=== PATIENT | male | born 1935 | race African-American/Black ===

== ENCOUNTER 2020-03-10 12:47 | Inpatient (IN) | payer MEDICARE ==
[2020-03-10 13:34] LABS: ABSOLUTE BASOPHILS # (AUTO) 0.1 10^3/uL (0.0-0.2); ABSOLUTE EOSINOPHILS # (AUTO) 0.4 10^3/uL (0.0-0.6); ABSOLUTE MONOCYTES (AUTO) 1.3 10^3/uL (0.1-1.4); BASOPHILS % (AUTO) 0.9 % (0-2); EOSINOPHILS % (AUTO) 3.4 % (0-6); LYMPHOCYTES % (AUTO) 15.7 % (13-45); MEAN CORPUSCULAR HEMOGLOBIN 31.1 pg (27.0-33.4); MEAN CORPUSCULAR HGB CONC 33.2 g/dL (32.0-36.0); MEAN CORPUSCULAR VOLUME 94 fl (80-97); MONOCYTES % (AUTO) 10.2 % (3-13); PLATELET COUNT 665 10^3/uL (150-450); RED BLOOD COUNT 4.16 10^6/uL (4.35-5.55); RED CELL DISTRIBUTION WIDTH 14.3 % (11.5-14.0); SEGMENTED NEUTROPHILS % (AUTO) 69.8 % (42-78); TOTAL CELLS COUNTED % (AUTO) 100 %; WHITE BLOOD COUNT 12.8 10^3/uL (4.0-10.5)
[2020-03-10 13:39] LABS: INTERNATIONAL RATION (INR) 0.99; PROTHROMBIN TIME 13.1 SEC (11.4-15.4)
[2020-03-10 13:49] LABS: ALBUMIN 3.6 g/dL (3.5-5.0); ALKALINE PHOSPHATASE 98 U/L (38-126); ANION GAP 5 (5-19); ASPARTATE AMINO TRANSFERASE 23 U/L (17-59); BILIRUBIN,TOTAL 0.6 mg/dL (0.2-1.3); BLOOD UREA NITROGEN 12 mg/dL (7-20); CALCIUM 9.4 mg/dL (8.4-10.2); CARBON DIOXIDE 30 mmol/L (22-30); CHLORIDE 99 mmol/L (98-107); GLUCOSE 324 mg/dL (75-110); POTASSIUM 4.9 mmol/L (3.6-5.0)
--- NOTE | 2020-03-10 13:50 | RADIOLOGY REPORT (SQ) ---
EXAM DESCRIPTION: CHEST SINGLE VIEW IMAGES COMPLETED DATE/TIME: 03/10/2020 1:35 pm REASON FOR STUDY: bed 19 sepsis protocol COMPARISON: Chest x-ray 09/19/2012. EXAM PARAMETERS: NUMBER OF VIEWS: One view. TECHNIQUE: Single frontal radiographic view of the chest acquired. RADIATION DOSE: NA LIMITATIONS: None. FINDINGS: LUNGS AND PLEURA: There are bibasilar airspace opacities. No pleural effusion or pneumoth orax. Hyperlucent lungs are suggestive of emphysema. MEDIASTINUM AND HILAR STRUCTURES: No masses. Contour normal. HEART AND VASCULAR STRUCTURES: Heart normal in size. Normal vasculature. BONES: No acute findings. HARDWARE: None in the chest. IMPRESSION: Bibasilar airspace opacities, may be secondary to atelectasis or pneumonia. Emphysema. TECHNICAL DOCUMENTATION: JOB ID: [id number] 2010 [employer]- All Rights Reserved Reading location - IP/workstation name: [email or web address]
[2020-03-10 14:01] LABS: TROPONIN I 0.029 ng/mL
--- NOTE | 2020-03-10 14:58 | RADIOLOGY REPORT (SQ) ---
EXAM DESCRIPTION: FOOT LEFT COMPLETE IMAGES COMPLETED DATE/TIME: 03/10/2020 2:44 pm REASON FOR STUDY: swelling COMPARISON: None. NUMBER OF VIEWS: Three views. TECHNIQUE: AP, lateral and oblique radiographic images acquired of the left foot. LIMITATIONS: None. FINDINGS: MINERALIZATION: Osteopenia. BONES: Linear lucencies are noted at the 1st, 2nd and 5th distal phalanges. Degenerative changes are noted at the 1st metatarsal-phalangeal joint and at the 5th metatarsophalangeal joint. SOFT TISSUES: There are thickened toenails with irregular edges. There is diffuse soft tissue swelli ng. Skin irregularity with small amount of gas is noted at the tips of the 1st and 2nd toes. IMPRESSION: 1. Linear lucencies at the 1st, 2nd and 5th distal phalanges, may represent nondisplaced fractures versus artifact. Please correlate with point tenderness. 2. Diffuse soft tissue swelling at the left foot. Skin irregularity with small amount of gas at the tips of the 1st and 2nd toes, suggestive of soft tissue laceration/wound. Please correlate with clin ical exam. 3. Thickened toenails with irregular edges. TECHNICAL DOCUMENTATION: JOB ID: [id number] 2010 [employer]- All Rights Reserved Reading location - IP/workstation name: [email or web address]
[2020-03-10 16:27] LABS: VENOUS BLOOD BASE EXCESS 2.1 mmol/L; VENOUS BLOOD PCO2 48.6 mmHg (35-63); VENOUS BLOOD PH 7.38 (7.30-7.42)
[2020-03-10] MEDS ORDERED: CEFEPIME 2 GM/D5W RTU 2 GM/50 ML RTUPB IV ONE ×2 (16:45→21:38)
[2020-03-10] MEDS ORDERED: VANCOMYCIN HCL INJ 1000 MG VIAL IV ONE (16:46)
--- NOTE | 2020-03-10 16:54 | ER Document Report ---
ED General - General Chief Complaint: Swelling Stated Complaint: FOOT SWELLING Time Seen by Provider: 03/10/20 16:11 - HPI Notes: Patient is an 84-year-old male who presents to the emergency department for evaluation. I asked him why he is here, he states he does not know. Evidently, EMS was called because of worsening swelling and pain in his left foot. He cannot give me any timeline on it. He states it does hurt some, but really cannot comment any further. He has no idea how long it is had foul-smelling drainage. He has not seen a physician in 20 years. He states he has no known medical problems. He was coughing in the room. I asked him how long he had been coughing, he states he does not have a cough. - Related Data Allergies/Adverse Reactions: No Known Allergies Allergy (Unverified 09/19/12 16:55) Home Medications: None Past Medical History - General Information source: Patient - Social History Smoking Status: Current Every Day Smoker Chew tobacco use (# tins/day): No Frequency of alcohol use: Occasional Drug Abuse: None Family History: Other Patient has homicidal ideation: No Musculoskeletal Medical History: Reports Hx Arthritis Surgical Hx: Other - Patient states "I might have had surgery, I do not remember." - Immunizations Hx Diphtheria, Pertussis, Tetanus Vaccination: No Review of Systems - Review of Systems Respiratory: See HPI Musculoskeletal: See HPI Skin: See HPI -: Yes All other systems reviewed and negative - I do not believe the patient to be a reliable historian Physical Exam - Vital signs Vitals: Resp 20 03/10/20 13:05 - Notes Notes: This is an 84-year-old male who appears his stated age. He is somewhat hard of hearing. He is lying comfortably in bed, arouses easily to verbal stimuli. Head is normocephalic and atraumatic, pupils are equal round, reactive to light. Oral mucosa is moist. Uvula is midline. Heart is regular rate and rhythm, lungs revealed diminished expiratory breath sounds. Abdomen is soft, nontender, normoactive bowel sounds. Extremities are mostly cachectic. The patient has 2+ pitting edema to the left foot. He has significant ulcerations and eschar formation on the first and second toes. He has a marked amount of foul-smelling drainage from the area. The foot is warm. He has 3+ pitting edema to the foot. He has excessive scaling of bilateral feet. Course - Re-evaluation Re-evalutation: 03/10/20 16:53 Patient presents to the emergency department for evaluation. He had laboratory investigations as ordered. The patient has a leukocytosis, hyperglycemia, consistent with undiagnosed diabetes. He has significant ulceration and infection in his left toes. He is given IV cefepime and vancomycin. He is giv en IV fluids, 2 L of LR ordered, followed by a third at 200 an hour. Will contact medicine for admission. He will likely need surgical debridement. 03/10/20 17:[address] Caban. He graciously accepted the patient to telemetry bed. I will consult surgery. 03/10/20 17:[address] Vera. He asked p.o. status of the patient, I explained to him I did not believe him to be a reliable historian. I did put in n.p.o. now order in. He requests a rapid COVID test, as patient will likely be taken to the OR. This was communicated to nursing conditioning yard supervisor. - Vital Signs Vital signs: Temp Pulse Resp BP Pulse Ox 98.3 F 19 165/78 H 97 03/10/20 13:32 03/10/20 16:01 03/10/20 16:01 03/10/20 15:01 - Laboratory Result Diagrams: 03/10/20 13:15 03/10/20 13:15 Laboratory results interpreted by me: 03/10/20 03/10/20 03/10/20 13:15 13:15 13:15 WBC 12.8 H RBC 4.16 L Hgb 13.0 L RDW 14.3 H Plt Count 665 H Absolute Neuts (auto) 9.0 H Sodium 134.3 L Glucose 324 H Lactic Acid NT-Pro-B Natriuret Pep 938 H 03/10/20 03/10/20 13:15 16:10 WBC RBC Hgb RDW Plt Count Absolute Neuts (auto) Sodium Glucose Lactic Acid 2.6 H 2.4 H NT-Pro-B Natriuret Pep - Diagnostic Test Radiology reviewed: Image reviewed, Reports reviewed Radiology results interpreted by me: 03/10/20 16:54 Chest X-Ray 03/10/20 00:00 IMPRESSION: Bibasilar airspace opacities, may be secondary to atelectasis or pneumonia. Emphysema. Foot X-Ray 03/10/20 00:00 IMPRESSION: 1. Linear lucencies at the 1st, 2nd and 5th distal phalanges, may represent nondisplaced fractures versus artifact. Please correlate with point tenderness. 2. Diffuse soft tissue swelling at the left foot. Skin irregularity with small amount of gas at the tips of the 1st and 2nd toes, suggestive of soft tissue laceration/wound. Please correlate with clinical exam. 3. Thickened toenails with irregular edges. - EKG Interpretation by Me Additional EKG results interpreted by me: 03/10/20 16:55 Sinus mechanism with a rate of 70 bpm. Left axis deviation. IVCD. Left anterior fascicular block. J-point and ST elevation in the anterior leads. This does appear different from prior. Discharge - Discharge Clinical Impression: Diabetes mellitus, new onset, Cellulitis in diabetic foot Diabetic foot ulcers Qualifiers: Diabetic foot ulcer location: toe Laterality: left Condition: Stable Disposition: ADMITTED INPATIENT Admitting Provider: Arsh (Hospitalist) Unit Admitted: Telemetry
[2020-03-10] MEDS: RINGERS SOLUTION,LACTATED 1,000 ML IV PRN ×2 (17:07→18:26)
[2020-03-10] MEDS ORDERED: RINGERS SOLUTION,LACTATED 1,000 ML IV ONE (17:07)
--- NOTE | 2020-03-10 17:40 | PDOC CONSULTATION ---
Consultation Consult Date: 03/10/20 Attending physician:: BRENTON CLAYTON Provider Consulted: CESAR WEINSTEIN Consult reason:: Ischemic, infected left foot History of Present Illness History of Present Illness: PREMA FAULKNER is a 84 Afro-Turkmen male who is brought by ground rescue [facility] emergency department because of left foot pain. Patient is a poor historian. Patient's daughter, Dayanara, is the alleged healthcare power of staff attorney. When I called her phone number , I heard to adults arguing, yelling profanities at each other, did not get a response so I hung up. Patient is evaluated emergency department found to have ischemic left toes, with infection. His ambulatory status is unknown. He is being admitted to the hospital for sepsis,, hospital service with surgery consu lting. 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 Past Medical History Past Medical History: Alcoholism, COPD, smoking, diabetes mellitus, peripheral vascular disease, dementia, history of acute renal failure Musculoskeltal Medical History: Reports: Arthritis Past Surgical History Past Surgical History: Unknown Social History Information Source: Patient Smoking Status: Current Every Day Smoker Electronic Cigarette use?: No Past Social History Note: Known alcoholic Family History Family History: None, Other Parental Family History Reviewed: No Children Family History Reviewed: NA Sibling(s) Family History Reviewed.: NA Medication/Allergy Home Medications: No Home Medications 1 09/19/12 Allergies/Adverse Reactions: No Known Allergies Allergy (Unverified 09/19/12 16:55) Review of Systems ROS unobtainable: Due to mental status, Other - Patient arouses ask hard of hearing, knows himself but little else Physical Exam Vital Signs: Temp Pulse Resp BP Pulse Ox 98.3 F 19 165/78 H 97 03/10/20 13:32 03/10/20 16:01 03/10/20 16:01 03/10/20 15:01 Intake & Output 03/09/20 03/10/20 03/11/20 06:59 06:59 06:59 Weight 76.2 kg General appearance: PRESENT: hard of hearing, other - Crumpled contracted Afro- Turkmen male, under the covers arouses Head exam: PRESENT: normocephalic Eye exam: PRESENT: other - Sclera muddy Mouth exam: PRESENT: other - Poor oral hygiene Respiratory exam: PRESENT: wheezes Cardiovascular exam: PRESENT: RRR Pulses: PRESENT: normal carotid pulses, normal radial pulses, normal femoral pulses, other - Unable to palpate pulses in feet GI/Abdominal exam: PRESENT: soft Rectal exam: PRESENT: deferred Extremities exam: PRESENT: other - Scaly skin about the extremities and torso; both legs are contracted; overgrown toenails mostly falling off left foot; multiple ischemic toes 134; foul smell and drainage from exposed tissue multiple toes; dehydrator tender to touch, warm, boggy Focused psych exam: PRESENT: other - Contracted Skin exam: PRESENT: dry Results Laboratory Results: 03/10/20 13:15 03/10/20 13:15 03/10/20 03/10/20 03/10/20 13:15 13:15 13:15 WBC 12.8 H RBC 4.16 L Hgb 13.0 L Hct 39.0 MCV 94 MCH 31.1 MCHC 33.2 RDW 14.3 H Plt Count 665 H Seg Neutrophils % 69.8 VBG pH VBG pCO2 VBG HCO3 VBG Base Excess Sodium 134.3 L Potassium 4.9 Chloride 99 Carbon Dioxide 30 Anion Gap 5 BUN 12 Creatinine 0.67 Est GFR ( Amer) > 60 Glucose 324 H Lactic Acid 2.6 H Calcium 9.4 Total Bilirubin 0.6 AST 23 Alkaline Phosphatase 98 Total Protein 8.0 Albumin 3.6 03/10/20 03/10/20 16:10 16:10 WBC RBC Hgb Hct MCV MCH MCHC RDW Plt Count Seg Neutrophils % VBG pH 7.38 VBG pCO2 48.6 VBG HCO3 28.0 VBG Base Excess 2.1 Sodium Potassium Chloride Carbon Dioxide Anion Gap BUN Creatinine Est GFR ( Amer) Glucose Lactic Acid 2.4 H Calcium Total Bilirubin AST Alkaline Phosphatase Total Protein Albumin 03/10/20 13:15 Troponin I 0.029 NT-Pro-B Natriuret Pep 938 H Impressions: Chest X-Ray 03/10/20 00:00 IMPRESSION: Bibasilar airspace opacities, may be secondary to atelectasis or pneumonia. Emphysema. Foot X-Ray 03/10/20 00:00 IMPRESSION: 1. Linear lucencies at the 1st, 2nd and 5th distal phalanges, may represent nondisplaced fractures versus artifact. Please correlate with point tenderness. 2. Diffuse soft tissue swelling at the left foot. Skin irregularity with small amount of gas at the tips of the 1st and 2nd toes, suggestive of soft tissue laceration/wound. Please correlate with clinical exam. 3. Thickened toenails with irregular edges. Assessment & Plan 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 Is this a current diagnosis for this admission?: Yes Plan: Impression: Multiple infected, ischemic toes left foot in contracted 84-year-old diabetic male, no medical care, with history of smoking and alcohol abuse Recommend: 1. Agree with admit, IV fluids, intravenous antibiotics, COVID-19 test, keep n.p.o. 2. Unable to ascertain patient's ambulatory status if any. Unable to communicate with next of kin despite trying. 3. Patient's left toes are unsalvageable. Depending upon patient's functional status, support situation, and motivation, patient will require amputation. My impression is that he will not well with anything less than a below the knee amputation; an [id number] amputation may be required pending results of vascular studies 4. Thank you for asking to participate in the care of this patient. We will reassess over the next 8 to 12 hours (2) Cellulitis in diabetic foot Is this a current diagnosis for this admission?: Yes (4) COPD (chronic obstructive pulmonary disease) Is this a current diagnosis for this admission?: Yes (5) Smoker Is this a current diagnosis for this admission?: Yes (6) Peripheral vascular disease Is this a current diagnosis for this admission?: Yes (7) Sepsis Is this a current diagnosis for this admission?: Yes - Time Time Spent: 30 to 50 Minutes Smoking Cessation Education: over 10 minutes Anticipated discharge: SNF
[2020-03-10 18:24] LABS: APPEARANCE,URINE CLEAR; BILIRUBIN,URINE NEGATIVE (NEGATIVE); COLOR,URINE YELLOW; GLUCOSE, URINE >=500 mg/dL (NEGATIVE); KETONES,URINE NEGATIVE (NEGATIVE); LEUKOCYTE ESTERASE,URINE NEGATIVE (NEGATIVE); NITRITE,URINE NEGATIVE (NEGATIVE); PROTEIN,URINE 30 mg/dL (NEGATIVE); URINE SPECIFIC GRAVITY 1.016
--- NOTE | 2020-03-10 18:35 | EKG REPORT ---
SEVERITY:- ABNORMAL ECG - SINUS RHYTHM LEFT ANTERIOR FASCICULAR BLOCK CONSIDER ANTERIOR INFARCT : Confirmed by: Natan Moreno 10-Mar-2020 18:34:10
[2020-03-10] MEDS ORDERED: ONDANSETRON HCL INJ/PF 4 MG/2 ML SDV IV PRN (18:51)
[2020-03-10] MEDS ORDERED: IPRATROPIUM/ALBUTEROL 0.5-2.5 MG/3 ML AMPUL NEB PRN (18:51)
[2020-03-10] MEDS ORDERED: ONDANSETRON 4 MG TAB.RAPDIS PO PRN (18:51)
[2020-03-10] MEDS ORDERED: ACETAMINOPHEN 325 MG TABLET PO PRN (18:51)
[2020-03-10] MEDS ORDERED: RINGERS SOLUTION,LACTATED 1,000 ML IV SCH (19:00)
--- NOTE | 2020-03-10 19:08 | PDOC H&P ---
History of Present Illness Admission Date/PCP: 03/10/20 17:27 History of Present Illness: PREMA FAULKNER is a 84 year old male with no reported past medical history who presents to the ED via EMS due to his daughter calling them to bring her father to the hospital due to obviously severely infected left foot. Patient is an extremely poor historian and is quite adamant that he has no medical problems and he does not need to see a doctor. He states he does not remember why they brought him to the emergency room. Surgeon attempted to discuss the case with the family however he reports to me that they were rather belligerent with each other with yelling and general disorder on the phone which made communication with them near impossible. On admission, patient is noted to have a leukocytosis. The great toe on his left foot is clearly necrotic and he has very poor pulses bilateral dorsalis pedis. General surgery has ordered arterial studies of the lower extremities. They have also recommended BKA as a therapeutic option to treat what is very likely progressive osteomyelitis of the left foot. Likely precipitated by untreated diabetes given the patient's blood sugars in the 300s on admission. He denies any history of diabetes. He is a current smoker and states he plans to continue to smoke. He does not want a nicotine patch. He is started on empiric cefepime and vancomycin and blood cultures have been sent and are pending. He will be admitted to inpatient [facility]. Past Medical History Medical History: None Musculoskeltal Medical History: Reports: Arthritis Past Surgical History Past Surgical History: Reports: None Social History Information Source: Patient, Emergency Med Personnel Lives with: Spouse/Significant other Smoking Status: Current Every Day Smoker Electronic Cigarette use?: No Frequency of Alcohol Use: Rare Hx Recreational Drug Use: No Drugs: None Hx Prescription Drug Abuse: No - Advance Directive Resuscitation Status: Full Code Surrogate healthcare decision maker:: , Bharath Family History Family History: None, Other Parental Family History Reviewed: Yes Children Family History Reviewed: Yes Sibling(s) Family History Reviewed.: Yes Medication/Allergy Home Medications: No Home Medications 1 09/19/12 Allergies/Adverse Reactions: No Known Allergies Allergy (Unverified 09/19/12 16:55) Review of Systems All systems: reviewed and no additional remarkable complaints except as stated - Patient has essentially no complaints despite very poor shape of his feet Physical Exam Vital Signs: Temp Pulse Resp BP Pulse Ox 98.3 F 19 165/78 H 97 03/10/20 13:32 03/10/20 16:01 03/10/20 16:01 03/10/20 15:01 Intake & Output 03/09/20 03/10/20 03/11/20 06:59 06:59 06:59 Intake Total 1050 Balance 1050 Weight 76.2 kg General appearance: PRESENT: no acute distress, well-developed, well-nourished Head exam: PRESENT: atraumatic, normocephalic Eye exam: PRESENT: conjunctiva pink Mouth exam: PRESENT: moist Respiratory exam: PRESENT: clear to auscultation brenda. ABSENT: rales, rhonchi, w heezes Cardiovascular exam: PRESENT: RRR. ABSENT: diastolic murmur, rubs, systolic murmur Pulses: PRESENT: +1 pedal pulses bilateral - Poor pulses GI/Abdominal exam: PRESENT: normal bowel sounds, soft. ABSENT: distended, gu arding, mass, organolmegaly, rebound, tenderness Rectal exam: PRESENT: deferred Extremities exam: ABSENT: pedal edema Neurological exam: PRESENT: alert, awake, oriented to person, oriented to place, oriented to time, oriented to situation Psychiatric exam: PRESENT: appropriate affect Skin exam: PRESENT: dry, warm, other - Obviously necrotic great toe on left foot with foul odor Results Laboratory Results: 03/10/20 13:15 03/10/20 13:15 03/10/20 03/10/20 03/10/20 13:15 13:15 13:15 WBC 12.8 H RBC 4.16 L Hgb 13.0 L Hct 39.0 MCV 94 MCH 31.1 MCHC 33.2 RDW 14.3 H Plt Count 665 H Seg Neutrophils % 69.8 VBG pH VBG pCO2 VBG HCO3 VBG Base Excess Sodium 134.3 L Potassium 4.9 Chloride 99 Carbon Dioxide 30 Anion Gap 5 BUN 12 Creatinine 0.67 Est GFR ( Amer) > 60 Glucose 324 H Lactic Acid 2.6 H Calcium 9.4 Total Bilirubin 0.6 AST 23 Alkaline Phosphatase 98 Total Protein 8.0 Albumin 3.6 Urine Color Urine Appearance Urine pH Ur Specific Rule Urine Protein Urine Glucose (UA) Urine Ketones Urine Blood Urine Nitrite Ur Leukocyte Esterase Urine WBC (Auto) Urine RBC (Auto) 03/10/20 03/10/20 03/10/20 16:10 16:10 17:56 WBC RBC Hgb Hct MCV MCH MCHC RDW Plt Count Seg Neutrophils % VBG pH 7.38 VBG pCO2 48.6 VBG HCO3 28.0 VBG Base Excess 2.1 Sodium Potassium Chloride Carbon Dioxide Anion Gap BUN Creatinine Est GFR ( Amer) Glucose Lactic Acid 2.4 H Calcium Total Bilirubin AST Alkaline Phosphatase Total Protein Albumin Urine Color YELLOW Urine Appearance CLEAR Urine pH 7.0 Ur Specific Rule 1.016 Urine Protein 30 H Urine Glucose (UA) >=500 H Urine Ketones NEGATIVE Urine Blood NEGATIVE Urine Nitrite NEGATIVE Ur Leukocyte Esterase NEGATIVE Urine WBC (Auto) 0 Urine RBC (Auto) 2 03/10/20 13:15 Troponin I 0.029 NT-Pro-B Natriuret Pep 938 H Impressions: Chest X-Ray 03/10/20 00:00 IMPRESSION: Bibasilar airspace opacities, may be secondary to atelectasis or pneumonia. Emphysema. Foot X-Ray 03/10/20 00:00 IMPRESSION: 1. Linear lucencies at the 1st, 2nd and 5th distal phalanges, may represent nondisplaced fractures versus artifact. Please correlate with point tenderness. 2. Diffuse soft tissue swelling at the left foot. Skin irregularity with small amount of gas at the tips of the 1st and 2nd toes, suggestive of soft tissue laceration/wound. Please correlate with clinical exam. 3. Thickened toenails with irregular edges. 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 Qualifiers: Non-pressure ulcer stage: unspecified non-pressure ulcer stage Qualified Code(s): L97.529 - Non-pressure chronic ulcer of other part of left foot with unspecified severity Is this a current diagnosis for this admission?: Yes Plan: Highly suspect osteomyelitis X-ray showed gas Empiric vancomycin/cefepime Blood culture sent General surgery consulted: Recommend BKA Likely combination of PVD and diabetes causing ulceration (2) COPD (chronic obstructive pulmonary disease) Qualifiers: COPD type: unspecified COPD Qualified Code(s): J44.9 - Chronic obstructive pulmonary disease, unspecified Is this a current diagnosis for this admission?: Yes Plan: Current smoker continues to smoke, is not interested in quitting As needed duo nebjaci (3) Cellulitis in diabetic foot Is this a current diagnosis for this admission?: Yes Plan: As above Needs long-term follow-up with podiatry (4) Diabetes mellitus, new onset Is this a current diagnosis for this admission?: Yes Plan: Hemoglobin A1c No history of diabetes per patient Accu-Cheks, sliding scale insulin (5) Peripheral vascular disease Is this a current diagnosis for this admission?: Yes Plan: Arterial studies of lower extremities ordered (6) Sepsis Qualifiers: Sepsis type: sepsis due to unspecified organism Severe sepsis acute organ d ysfunction type: unspecified Severe sepsis shock status: without septic shock Is this a current diagnosis for this admission?: Yes Plan: Meets sirs criteria based on tachypnea and leukocytosis Source is left foot osteomyelitis Antibiotics and IV fluids as above (7) Smoker Is this a current diagnosis for this admission?: Yes - Time Time Spent with patient: 35 or more minutes Smoking Cessation Education: 3 to 10 minutes Medications reviewed and adjusted accordingly: Yes - Inpatient Certification Based on my medical assessment, after consideration of the patient's comorbidities, presenting symptoms, or acuity I expect that the services needed warrant INPATIENT care.: Yes I certify that my determination is in accordance with my understanding of Medicare's requirements for reasonable and necessary INPATIENT services [42 CFR 412.3e].: Yes Medical Necessity: Significant Comorbidiites Make Outpatient Treatment Too Risky, Need Close Monitoring Due to Risk of Patient Decompensation, Need For IV Fluids, Need for IV Antibiotics, Need for Surgery, Risk of Complication if Not Cared For in Hospital, Risk of Diagnosis Which Will Require Inpatient Eval/Care/Monitoring
[2020-03-10] MEDS ORDERED: CEFEPIME 1 GM/D5W RTU 0 GM/0 ML RTUPB IV ONE (21:20)
[2020-03-10] MEDS: INSULIN LISPRO 100 UNIT/ML 3 ML VIAL SUBCUT SCH (21:49)
[2020-03-10] MEDS: CEFEPIME 2 GM/D5W RTU 2 GM/50 ML RTUPB IV SCH (21:49)
[2020-03-11] MEDS: RINGERS SOLUTION,LACTATED 1,000 ML IV PRN ×2 (02:11→16:18)
[2020-03-11] MEDS ORDERED: CEFEPIME 2 GM/D5W RTU 2 GM/50 ML RTUPB IV ONE (05:01)
[2020-03-11] MEDS: CEFEPIME 2 GM/D5W RTU 2 GM/50 ML RTUPB IV SCH (05:13)
[2020-03-11 05:56] LABS: ABSOLUTE BASOPHILS # (AUTO) 0.1 10^3/uL (0.0-0.2); ABSOLUTE EOSINOPHILS # (AUTO) 0.8 10^3/uL (0.0-0.6); ABSOLUTE LYMPHOCYTES (AUTO) 2.1 10^3/uL (0.5-4.7); ABSOLUTE MONOCYTES (AUTO) 1.5 10^3/uL (0.1-1.4); ABSOLUTE NEUT (AUTO) 9.2 10^3/uL (1.7-8.2); BASOPHILS % (AUTO) 0.5 % (0-2); EOSINOPHILS % (AUTO) 5.7 % (0-6); HEMATOCRIT 35.4 % (37.9-51.0); HEMOGLOBIN 11.9 g/dL (13.5-17.0); LYMPHOCYTES % (AUTO) 15.4 % (13-45); MEAN CORPUSCULAR HEMOGLOBIN 30.9 pg (27.0-33.4); MEAN CORPUSCULAR HGB CONC 33.5 g/dL (32.0-36.0); MEAN CORPUSCULAR VOLUME 92 fl (80-97); MONOCYTES % (AUTO) 10.8 % (3-13); PLATELET COUNT 565 10^3/uL (150-450); RED BLOOD COUNT 3.85 10^6/uL (4.35-5.55); RED CELL DISTRIBUTION WIDTH 14.6 % (11.5-14.0); SEGMENTED NEUTROPHILS % (AUTO) 67.6 % (42-78); TOTAL CELLS COUNTED % (AUTO) 100 %; WHITE BLOOD COUNT 13.7 10^3/uL (4.0-10.5)
[2020-03-11 06:18] LABS: CHOLESTEROL 205.38 mg/dL (0-200); TRIGLYCERIDES 165 mg/dL (<150)
[2020-03-11 06:29] LABS: DIRECT LDL 141 mg/dL (<100)
[2020-03-11 06:33] LABS: FREE T4 (FREE THYROXINE) 1.01 ng/dL (0.78-2.19)
[2020-03-11 06:47] LABS: THYROID STIMULATING HORMONE 2.35 uIU/mL (0.47-4.68)
[2020-03-11] MEDS ORDERED: VANCOMYCIN HCL INJ 500 MG VIAL IV SCH (10:00)
[2020-03-11] MEDS: INSULIN LISPRO 100 UNIT/ML 3 ML VIAL SUBCUT SCH ×4 (11:36→21:37)
[2020-03-11] MEDS: DOCUSATE SODIUM 100 MG CAPSULE PO SCH (12:00)
[2020-03-11] MEDS: CEFEPIME HCL 2 GM in DEXTROSE 5%-WATER 50 ML IV SCH ×2 (14:53→21:37)
[2020-03-11] MEDS: VANCOMYCIN HCL 1,000 MG in DEXTROSE 5%-WATER 250 ML IV SCH (17:05)
--- NOTE | 2020-03-11 17:10 | PDOC PROGRESS REPORT ---
Subjective Progress Note for:: 03/11/20 Subjective:: Patient seems to be doing a bit better today though he still oblivious to all of his medical problems. He is not oriented to anything but himself. I discussed all of his lab findings today and the fact that I believe he has diabetes, hyperlipidemia, hypertension. We talked again about his foot being infected and the need for amputation. I believe he has some significant underlying cognitive impairment very likely dementia. He does admit to having worsening memory loss over the last few years. I started him on a statin for his elevated cholesterol/LDL. His A1c is 10.3. Blood culture is pending and COVID is negative. He has no new complaints today. Reason For Visit: OSTEOMYELITIS OF LEFT FOOT, T2DM, HTN Physical Exam Vital Signs: Temp Pulse Resp BP Pulse Ox 97.8 F 77 18 137/67 H 96 03/11/20 15:28 03/11/20 15:28 03/11/20 15:28 03/11/20 15:28 03/11/20 15:28 Intake & Output 03/10/20 03/11/20 03/12/20 06:59 06:59 06:59 Intake Total 3150 1050 Output Total 660 275 Balance 2490 775 Weight 70.5 kg General appearance: PRESENT: no acute distress, well-developed, well-nourished Head exam: PRESENT: atraumatic, normocephalic Eye exam: PRESENT: conjunctiva pink Mouth exam: PRESENT: moist Respiratory exam: PRESENT: clear to auscultation brenda. ABSENT: rales, rhonchi, wheezes Cardiovascular exam: PRESENT: RRR. ABSENT: diastolic murmur, rubs, systolic murmur Pulses: PRESENT: +1 pedal pulses bilateral - Poor pulses GI/Abdominal exam: PRESENT: normal bowel sounds, soft. ABSENT: distended, guarding, mass, organolmegaly, rebound, tenderness Extremities exam: ABSENT: pedal edema Neurological exam: PRESENT: alert, awake, oriented to person. ABSENT: oriented to place, oriented to time, oriented to situation Skin exam: PRESENT: dry, warm, other - Foot wound noted same as before, necrotic great toe without significant drainage Results Laboratory Results: 03/11/20 04:23 03/10/20 13:15 03/10/20 03/11/20 03/11/20 17:56 04:23 04:23 WBC 13.7 H RBC 3.85 L Hgb 11.9 L Hct 35.4 L MCV 92 MCH 30.9 MCHC 33.5 RDW 14.6 H Plt Count 565 H Seg Neutrophils % 67.6 Magnesium 1.7 Triglycerides 165 H Cholesterol 205.38 H LDL Cholesterol Direct 141 H VLDL Cholesterol 33.0 H HDL Cholesterol 35 L TSH Free T4 Urine Color YELLOW Urine Appearance CLEAR Urine pH 7.0 Ur Specific [place] 1.016 Urine Protein 30 H Urine Glucose (UA) >=500 H Urine Ketones NEGATIVE Urine Blood NEGATIVE Urine Nitrite NEGATIVE Ur Leukocyte Esterase NEGATIVE Urine WBC (Auto) 0 Urine RBC (Auto) 2 03/11/20 04:23 WBC RBC Hgb Hct MCV MCH MCHC RDW Plt Count Seg Neutrophils % Magnesium Triglycerides Cholesterol LDL Cholesterol Direct VLDL Cholesterol HDL Cholesterol TSH 2.35 Free T4 1.01 Urine Color Urine Appearance Urine pH Ur Specific [place] Urine Protein Urine Glucose (UA) Urine Ketones Urine Blood Urine Nitrite Ur Leukocyte Esterase Urine WBC (Auto) Urine RBC (Auto) 03/10/20 13:15 Blood Blood Culture (PCR) - Final 03/10/20 16:10 Blood Blood Culture (PCR) - Final Staphylococcus Species 03/10/20 13:15 Troponin I 0.029 NT-Pro-B Natriuret Pep 938 H Impressions: Chest X-Ray 03/10/20 00:00 IMPRESSION: Bibasilar airspace opacities, may be secondary to atelectasis or pneumonia. Emphysema. Foot X-Ray 03/10/20 00:00 IMPRESSION: 1. Linear lucencies at the 1st, 2nd and 5th distal phalanges, may represent nondisplaced fractures versus artifact. Please correlate with point tenderness. 2. Diffuse soft tissue swelling at the left foot. Skin irregularity with small amount of gas at the tips of the 1st and 2nd toes, suggestive of soft tissue laceration/wound. Please correlate with clinical exam. 3. Thickened toenails with irregular edges. 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 (2) COPD (chronic obstructive pulmonary disease) Qualifiers: COPD type: unspecified COPD Qualified Code(s): J44.9 - Chronic obstructive pulmonary disease, unspecified Is this a current diagnosis for this admission?: Yes Plan: Current smoker continues to smoke, is not interested in quitting As needed duo nebs Stable breathing (3) Cellulitis in diabetic foot Is this a current diagnosis for this admission?: Yes (4) Diabetes mellitus, new onset Is this a current diagnosis for this admission?: Yes Plan: Hemoglobin A1c 10.3 No history of diabetes per patient Accu-Cheks, sliding scale insulin Will need to be on insulin at discharge per guidelines, can probably be transitioned to oral medications eventually (5) Peripheral vascular disease Is this a current diagnosis for this admission?: Yes Plan: Arterial studies of lower extremities ordered, pending (6) Sepsis Qualifiers: Sepsis type: sepsis due to unspecified organism Severe sepsis acute organ dysfunction type: unspecified Severe sepsis shock status: without septic shock Is this a current diagnosis for this admission?: Yes (7) Smoker Is this a current diagnosis for this admission?: Yes Plan: Not interested in quitting, intends to continue smoking - Time Time Spent with patient: 15-24 minutes Medications reviewed and adjusted accordingly: Yes - Inpatient Certification Based on my medical assessment, after consideration of the patient's comorbidities, presenting symptoms, or acuity I expect that the services needed warrant INPATIENT care.: Yes I certify that my determination is in accordance with my understanding of Medicare's requirements for reasonable and necessary INPATIENT services [42 CFR 412.3e].: Yes Medical Necessity: Significant Comorbidiites Make Outpatient Treatment Too Risky, Need Close Monitoring Due to Risk of Patient Decompensation, Need for IV Antibiotics, Risk of Complication if Not Cared For in Hospital, Risk of Diagnosis Which Will Require Inpatient Eval/Care/Monitoring
[2020-03-11] MEDS ORDERED: GLUCAGON,HUMAN RECOMB 1 MG INJ SUBCUT PRN (17:22)
[2020-03-11] MEDS ORDERED: DEXTROSE 50%-WATER 25 GM/50 ML DISP.SYRIN IV PRN ×2 (17:22)
[2020-03-11] MEDS ORDERED: DEXTROSE 40% GEL 15 GM TUBE PO PRN ×2 (17:22)
--- NOTE | 2020-03-11 17:22 | PDOC PROGRESS REPORT ---
Subjective Progress Note for:: 03/11/20 Subjective:: 84-year-old male, confused, with a severe left diabetic foot infection. The patient denies any foot pain. He expressed that he would "like to go home". At this time he denies chest pain, shortness of breath, fevers, chills, abdominal pain, extremity pain, nausea, vomiting, dizziness, orthostasis. Reason For Visit: OSTEOMYELITIS OF LEFT FOOT, T2DM, HTN Physical Exam Vital Signs: Temp Pulse Resp BP Pulse Ox 97.8 F 77 18 137/67 H 96 03/11/20 15:28 03/11/20 15:28 03/11/20 15:28 03/11/20 15:28 03/11/20 15:28 Intake & Output 03/10/20 03/11/20 03/12/20 06:59 06:59 06:59 Intake Total 3150 1050 Output Total 660 525 Balance 2490 525 Weight 70.5 kg General appearance: PRESENT: no acute distress, cooperative Head exam: PRESENT: atraumatic, normocephalic Eye exam: ABSENT: scleral icterus Mouth exam: PRESENT: moist, neck supple Neck exam: ABSENT: meningismus, tenderness, tracheal deviation Respiratory exam: PRESENT: unlabored. ABSENT: tachypnea, wheezes Cardiovascular exam: ABSENT: tachycardia Vascular exam: PRESENT: other - No palpable distal pulses (lower extremities bilaterally). GI/Abdominal exam: PRESENT: soft. ABSENT: distended, rigid, tenderness Rectal exam: PRESENT: deferred Extremities exam: PRESENT: other - Wet gangrene of the left first, second, third, and fifth toes. Erythema extending up the foot, with edema of the left foot. Neurological exam: PRESENT: alert, awake. ABSENT: oriented to person, oriented to place, oriented to time, oriented to situation Psychiatric exam: ABSENT: agitated, anxious Focused psych exam: PRESENT: other - Confused Skin exam: PRESENT: erythema - Left foot, other - Wet gangrene of the left foot Results Laboratory Results: 03/11/20 04:23 03/10/20 13:15 03/10/20 03/11/20 03/11/20 17:56 04:23 04:23 WBC 13.7 H RBC 3.85 L Hgb 11.9 L Hct 35.4 L MCV 92 MCH 30.9 MCHC 33.5 RDW 14.6 H Plt Count 565 H Seg Neutrophils % 67.6 Magnesium 1.7 Triglycerides 165 H Cholesterol 205.38 H LDL Cholesterol Direct 141 H VLDL Cholesterol 33.0 H HDL Cholesterol 35 L TSH Free T4 Urine Color YELLOW Urine Appearance CLEAR Urine pH 7.0 Ur Specific [place] 1.016 Urine Protein 30 H Urine Glucose (UA) >=500 H Urine Ketones NEGATIVE Urine Blood NEGATIVE Urine Nitrite NEGATIVE Ur Leukocyte Esterase NEGATIVE Urine WBC (Auto) 0 Urine RBC (Auto) 2 03/11/20 04:23 WBC RBC Hgb Hct MCV MCH MCHC RDW Plt Count Seg Neutrophils % Magnesium Triglycerides Cholesterol LDL Cholesterol Direct VLDL Cholesterol HDL Cholesterol TSH 2.35 Free T4 1.01 Urine Color Urine Appearance Urine pH Ur Specific [place] Urine Protein Urine Glucose (UA) Urine Ketones Urine Blood Urine Nitrite Ur Leukocyte Esterase Urine WBC (Auto) Urine RBC (Auto) 03/10/20 13:15 Blood Blood Culture (PCR) - Final 03/10/20 16:10 Blood Blood Culture (PCR) - Final Staphylococcus Species 03/10/20 13:15 Troponin I 0.029 NT-Pro-B Natriuret Pep 938 H Impressions: Chest X-Ray 03/10/20 00:00 IMPRESSION: Bibasilar airspace opacities, may be secondary to atelectasis or pneumonia. Emphysema. Foot X-Ray 03/10/20 00:00 IMPRESSION: 1. Linear lucencies at the 1st, 2nd and 5th distal phalanges, may represent nondisplaced fractures versus artifact. Please correlate with point tenderness. 2. Diffuse soft tissue swelling at the left foot. Skin irregularity with small amount of gas at the tips of the 1st and 2nd toes, suggestive of soft tissue laceration/wound. Please correlate with clinical exam. 3. Thickened toenails with irregular edges. Assessment & Plan - Diagnosis (1) Gangrene of left foot Is this a current diagnosis for this admission?: Yes (2) Diabetes mellitus, new onset Is this a current diagnosis for this admission?: Yes (3) Peripheral vascular disease Is this a current diagnosis for this admission?: Yes - Plan Summary Plan Summary: This is an 84-year-old male with new onset diabetes, and gangrene of the left foot. He has osteomyelitis and active infection of the first, second, third, and fifth toes. The erythema is extending up, and encompassing most of the left foot. I had a long discussion with the patient's daughter, Dayanara. I have discussed with her the most appropriate next step is below-knee amputation. The patient's daughter is in agreement that surgery should be performed. She would like the opportunity to discuss his treatment with her other family members. I will touch base with her again tomorrow, to establish consent to below-knee amputation. N.p.o. after midnight, in case the family makes a decision tomorrow.
[2020-03-11] MEDS ORDERED: VANCOMYCIN HCL 1,000 MG in DEXTROSE 5%-WATER 250 ML IV SCH (18:00)
--- NOTE | 2020-03-11 19:57 | ADVANCED CARE ---
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 Diagnosis Current: Yes (2) COPD (chronic obstructive pulmonary disease) Diagnosis Current: Yes (3) Cellulitis in diabetic foot Diagnosis Current: Yes (4) Diabetes mellitus, new onset Diagnosis Current: Yes (5) Peripheral vascular disease Diagnosis Current: Yes (6) Sepsis Diagnosis Current: Yes (7) Smoker Diagnosis Current: Yes Attendance: Patient Resuscitation Status: Full Code Discussion: All aspects of code status discussed with patient/POA including cardioversion, chest compressions, and intubation and the patient/POA indicated they wish to be full code MPOA is designated as: Time Spent: Over 17 minutes
[2020-03-11 20:54] LABS: ANION GAP 5 (5-19); BLOOD UREA NITROGEN 8 mg/dL (7-20); CALCIUM 9.5 mg/dL (8.4-10.2); CARBON DIOXIDE 28 mmol/L (22-30); CHLORIDE 101 mmol/L (98-107); GLUCOSE 179 mg/dL (75-110); POTASSIUM 4.7 mmol/L (3.6-5.0)
[2020-03-11] MEDS: ATORVASTATIN CALCIUM 40 MG TABLET PO SCH (21:37)
--- NOTE | 2020-03-12 01:23 | XCELERA REPORT ---
[address] [address] Transthoracic Echocardiogram Report Name: PREMA FAULKNER Age: 84 yrs Gender: Male : 1935 Patient Status: Inpatient Patient Location: [facility] ([place]A Study Date: 03/11/2020 05:29 PM Height: 69 in Weight: 167 lb BSA: 1.9 m2 Procedure: A two-dimensional transthoracic echocardiogram with color flow and Doppler was performed. The study was technically difficult with many images being suboptimal in quality. Reason For Study: CHF History: CHF. Ordering Physician: CRYSTAL LOZANO Performed By: Adina Webb Interpretation Summary There is mild to moderate concentric left ventricular hypertrophy. LV EF is 65% Left ventricular systolic function is normal. Doppler measurements suggest impaired left ventricular relaxation, which is associated with grade I/IV or mild diastolic dysfunction The left ventricular wall motion is normal. There is no thrombus. nO asd,vsd,OR pfo SEEN. The right ventricle is normal in size and function. The right atrium is normal. The left atrial size is normal. There is no evidence of mitral valve prolapse. There is no vegetation seen on the mitral valve. There is no mitral valve stenosis. There is a trace amount of mitral regurgitation There is no aortic valvular vegetation. There is no aortic valve stenosis There is no LVOT obstruction. There is a trace amount of aortic regurgitation There is no tricuspid stenosis. There is a trace amount of tricuspid regurgitation There is mild pulmonary hypertension by echo RVSP IS 36 TO 41 MM OF Hg WITH RA MEAN OF 15 20 The aortic root is not well visualized but is probably normal size. The inferior vena cava appeared dilated and decreased < 50% with respiration (RAP 15-20 mmHg) There is no pericardial effusion. MMode/2D Measurements & Calculations RVDd: 2.8 cm LVIDd: 4.0 cm FS: 39.5 % Ao root diam: 3.4 cm IVSd: 1.2 cm LVIDs: 2.4 cm EDV(Teich): 68.5 ml Ao root area: 9.3 cm2 LVPWd: 1.2 cm ESV(Teich): 20.1 ml LA dimension: 3.4 cm EF(Teich): 70.7 % Doppler Measurements & Calculations MV E max arjun: MV P1/2t max arjun: Ao V2 max: AI max arjun: 76.0 cm/sec 84.2 cm/sec 117.8 cm/sec 250.7 cm/sec MV A max arjun: MV P1/2t: 74.3 msec Ao max P.6 mmHgAI max P.5 cm/sec MVA(P1/2t): 3.0 cm2 25.2 mmHg MV E/A: 0.65 MV dec slope: AI dec slope: 154.2 cm/sec2 331.6 cm/sec2 AI P1/2t: MV dec time: 476.2 msec 0.25 sec LV V1 max PG: TR max arjun: AV P1/2t-pr_phl: MV P1/2t-pr_phl: 3.3 mmHg 227.6 cm/sec 489.8 msec 74.3 msec LV V1 max: TR max P.7 mmHg 90.6 cm/sec Left Ventricle The left ventricle is normal in size. There is mild to moderate concentric left ventricular hypertrophy. LV EF is 65%. Left ventricular systolic function is normal. Doppler measurements suggest impaired left ventricular relaxation, which is associated with grade I/IV or mild diastolic dysfunction. The left ventricular wall motion is normal. There is no thrombus. nO asd,vsd,OR pfo SEEN. Right Ventricle The right ventricle is normal in size and function. Atria The right atrium is normal. The left atrial size is normal. Mitral Valve There is no evidence of mitral valve prolapse. There is no vegetation seen on the mitral valve. There is no mitral valve stenosis. There is a trace amount of mitral regurgitation. Aortic Valve There is no aortic valvular vegetation. There is no aortic valve stenosis. There is no LVOT obstruction. There is a trace amount of aortic regurgitation. Tricuspid Valve There is no tricuspid stenosis. There is a trace amount of tricuspid regurgitation. There is mild pulmonary hypertension by echo. RVSP IS 36 TO 41 MM OF Hg WITH RA MEAN OF 15 20. Pulmonic Valve The pulmonic valve is not well visualized. Great Vessels The aortic root is not well visualized but is probably normal size. The inferior vena cava appeared dilated and decreased < 50% with respiration (RAP 15-20 mmHg). Effusions There is no pericardial effusion. : CRYSTAL LOZANO Lakshmi
[2020-03-12] MEDS: VANCOMYCIN HCL 1,000 MG in DEXTROSE 5%-WATER 250 ML IV SCH ×2 (05:24→18:19)
[2020-03-12] MEDS: CEFEPIME HCL 2 GM in DEXTROSE 5%-WATER 50 ML IV SCH ×3 (05:24→21:46)
[2020-03-12] MEDS: HEPARIN SOD (PORCINE) 5,000 UNIT/ML 1 ML VIAL SUBCUT SCH ×3 (05:25→21:44)
[2020-03-12 05:40] LABS: ABSOLUTE BASOPHILS # (AUTO) 0.1 10^3/uL (0.0-0.2); ABSOLUTE EOSINOPHILS # (AUTO) 0.6 10^3/uL (0.0-0.6); ABSOLUTE MONOCYTES (AUTO) 1.5 10^3/uL (0.1-1.4); ABSOLUTE NEUT (AUTO) 8.2 10^3/uL (1.7-8.2); BASOPHILS % (AUTO) 0.8 % (0-2); EOSINOPHILS % (AUTO) 5.1 % (0-6); HEMATOCRIT 35.7 % (37.9-51.0); LYMPHOCYTES % (AUTO) 16.1 % (13-45); MEAN CORPUSCULAR HGB CONC 33.6 g/dL (32.0-36.0); MEAN CORPUSCULAR VOLUME 93 fl (80-97); MONOCYTES % (AUTO) 11.8 % (3-13); PLATELET COUNT 548 10^3/uL (150-450); RED BLOOD COUNT 3.86 10^6/uL (4.35-5.55); RED CELL DISTRIBUTION WIDTH 14.4 % (11.5-14.0); SEGMENTED NEUTROPHILS % (AUTO) 66.2 % (42-78); TOTAL CELLS COUNTED % (AUTO) 100 %; WHITE BLOOD COUNT 12.3 10^3/uL (4.0-10.5)
[2020-03-12] MEDS: INSULIN LISPRO 100 UNIT/ML 3 ML VIAL SUBCUT SCH ×4 (08:21→21:46)
[2020-03-12] MEDS: DOCUSATE SODIUM 100 MG CAPSULE PO SCH (11:21)
--- NOTE | 2020-03-12 12:27 | PDOC PROGRESS REPORT ---
Subjective Progress Note for:: 03/12/20 Subjective:: 84-year-old male, confused, with a severe left diabetic foot infection. The patient denies any foot pain. At this time he denies chest pain, shortness of breath, fevers, chills, abdominal pain, extremity pain, nausea, vomiting, dizziness, orthostasis. I have again discussed the case with his daughter. She is in agreement that surgery is the most appropriate next course of action. Reason For Visit: OSTEOMYELITIS OF LEFT FOOT, T2DM, HTN Physical Exam Vital Signs: Temp Pulse Resp BP Pulse Ox 98.2 F 84 17 133/62 H 100 03/12/20 08:28 03/12/20 08:28 03/12/20 08:28 03/12/20 08:28 03/12/20 08:28 Intake & Output 03/11/20 03/12/20 03/13/20 06:59 06:59 06:59 Intake Total 3150 1650 Output Total 660 1675 Balance 2490 -25 Weight 70.5 kg 72.4 kg Exam: General appearance: PRESENT: no acute distress, cooperative Head exam: PRESENT: atraumatic, normocephalic Eye exam: ABSENT: scleral icterus Mouth exam: PRESENT: moist, neck supple Neck exam: ABSENT: meningismus, tenderness, tracheal deviation Respiratory exam: PRESENT: unlabored. ABSENT: tachypnea, wheezes Cardiovascular exam: ABSENT: tachycardia Vascular exam: PRESENT: other - No palpable distal pulses (lower extremities bilaterally). GI/Abdominal exam: PRESENT: soft. ABSENT: distended, rigid, tenderness Rectal exam: PRESENT: deferred Extremities exam: PRESENT: other - Wet gangrene of the left first, second, third, and fifth toes. Erythema extending up the foot, with edema of the left foot. Neurological exam: PRESENT: alert, awake. ABSENT: oriented to person, oriented to place, oriented to time, oriented to situation Psychiatric exam: ABSENT: agitated, anxious Focused psych exam: PRESENT: other - Confused Skin exam: PRESENT: erythema - Left foot, other - Wet gangrene of the left foot Results Laboratory Results: 03/12/20 04:26 03/11/20 19:29 03/11/20 03/12/20 19:29 04:26 WBC 12.3 H RBC 3.86 L Hgb 12.0 L Hct 35.7 L MCV 93 MCH 31.0 MCHC 33.6 RDW 14.4 H Plt Count 548 H Seg Neutrophils % 66.2 Sodium 133.8 L Potassium 4.7 Chloride 101 Carbon Dioxide 28 Anion Gap 5 BUN 8 Creatinine 0.58 Est GFR ( Amer) > 60 Glucose 179 H Calcium 9.5 03/10/20 16:10 Blood Blood Culture (PCR) - Final Staphylococcus Species 03/10/20 13:15 Blood Blood Culture (PCR) - Final 03/10/20 13:15 Troponin I 0.029 NT-Pro-B Natriuret Pep 938 H Impressions: Chest X-Ray 03/10/20 00:00 IMPRESSION: Bibasilar airspace opacities, may be secondary to atelectasis or pneumonia. Emphysema. Foot X-Ray 03/10/20 00:00 IMPRESSION: 1. Linear lucencies at the 1st, 2nd and 5th distal phalanges, may represent nondisplaced fractures versus artifact. Please correlate with point tenderness. 2. Diffuse soft tissue swelling at the left foot. Skin irregularity with small amount of gas at the tips of the 1st and 2nd toes, suggestive of soft tissue laceration/wound. Please correlate with clinical exam. 3. Thickened toenails with irregular edges. Assessment & Plan - Diagnosis (1) Gangrene of left foot Is this a current diagnosis for this admission?: Yes (2) Diabetes mellitus, new onset Is this a current diagnosis for this admission?: Yes (3) Peripheral vascular disease Is this a current diagnosis for this admission?: Yes - Plan Summary Plan Summary: This is an 84-year-old male with new onset diabetes, and gangrene of the left foot. He has osteomyelitis and active infection of the first, second, third, and fifth toes. The erythema is extending up, and encompassing most of the left foot. I had another discussion with the patient's daughter, Dayanara. We again discussed below-knee amputation. She is in agreement that surgery should be performed. Risks/benefits discussed, informed consent obtained, and all questions answered.
[2020-03-12] MEDS ORDERED: BUPIVACAINE HCL 0.25 % INJ/PF (2.5 MG/1 ML) 30 ML VIAL ONE (13:43)
[2020-03-12] MEDS ORDERED: PROPOFOL INJ 200 MG/20 ML VIAL IV ONE (13:48)
[2020-03-12] MEDS ORDERED: ONDANSETRON HCL INJ/PF 4 MG/2 ML SDV ONE (13:48)
[2020-03-12] MEDS ORDERED: DEXAMETHASONE SOD PHOSPHATE INJ 4 MG/1 ML VIAL ONE (13:48)
[2020-03-12] MEDS ORDERED: MIDAZOLAM 2 MG/2 ML INJ ONE (13:48)
[2020-03-12] MEDS ORDERED: FENTANYL CITRATE INJ/PF 100 MCG/2 ML AMPUL ONE (13:48)
[2020-03-12] MEDS ORDERED: FENTANYL CITRATE INJ/PF 100 MCG/2 ML AMPUL IV PRN ×3 (15:06)
[2020-03-12] MEDS ORDERED: PROMETHAZINE HCL INJ 25 MG/1 ML VIAL IV PRN ×2 (15:06)
[2020-03-12] MEDS ORDERED: ONDANSETRON HCL INJ/PF 4 MG/2 ML SDV IV PRN (15:06)
[2020-03-12] MEDS ORDERED: MEPERIDINE HCL/PF INJ 25 MG/1 ML DISP.SYRIN IV PRN (15:06)
[2020-03-12] MEDS ORDERED: DIPHENHYDRAMINE HCL 50 MG/ML VIAL IV PRN (15:06)
[2020-03-12] MEDS ORDERED: MORPHINE SULFATE 10 MG/ML INJ IV PRN ×2 (15:06→16:32)
--- NOTE | 2020-03-12 15:34 | PDOC PROGRESS REPORT ---
Subjective Progress Note for:: 03/12/20 Subjective:: 03/11/2020 Patient seems to be doing a bit better today though he still oblivious to all of his medical problems. He is not oriented to anything but himself. I discussed all of his lab findings today and the fact that I believe he has diabetes, hyperlipidemia, hypertension. We talked again about his foot being infected and the need for amputation. I believe he has some significant underlying cognitive impairment very likely dementia. He does admit to having worsening memory loss over the last few years. I started him on a statin for his elevated cholestero l/LDL. His A1c is 10.3. Blood culture is pending and COVID is negative. He has no new complaints today. 03/12/2020 Patient seems to be doing well today. He seems rather oblivious to how sick he is and what exactly is wrong with his foot. He does remember parts of our conversation from yesterday in which I told him he needed surgery on his foot. General surgery has called the patient's daughter and spoke with them about the surgery and they are in agreement. I discussed with the patient that this surgery is needed to preserve the rest of his leg as well as his life given the infection will very likely continue to spread if we do not have surgical intervention. Patient is in full agreement with this plan and states he wants to have surgery. Otherwise, patient has no new complaints. Reason For Visit: OSTEOMYELITIS OF LEFT FOOT, T2DM, HTN Physical Exam Vital Signs: Temp Pulse Resp BP Pulse Ox 98.4 F 74 18 138/60 H 95 03/12/20 10:27 03/12/20 10:27 03/12/20 10:27 03/12/20 10:27 03/12/20 10:27 Intake & Output 03/11/20 03/12/20 03/13/20 06:59 06:59 06:59 Intake Total 3150 1650 Output Total 660 1675 Balance 2490 -25 Weight 70.5 kg 72.4 kg General appearance: PRESENT: no acute distress, well-developed, well-nourished Head exam: PRESENT: atraumatic, normocephalic Eye exam: PRESENT: conjunctiva pink Mouth exam: PRESENT: moist Respiratory exam: PRESENT: clear to auscultation brenda. ABSENT: rales, rhonchi, wheezes Cardiovascular exam: PRESENT: RRR. ABSENT: diastolic murmur, rubs, systolic m urmur GI/Abdominal exam: PRESENT: normal bowel sounds, soft. ABSENT: distended, guarding, mass, organolmegaly, rebound, tenderness Extremities exam: PRESENT: other - Infected necrotic great toe/foot as before. ABSENT: pedal edema Neurological exam: PRESENT: alert, awake, oriented to person. ABSENT: oriented to place, oriented to time, oriented to situation Skin exam: PRESENT: dry, intact, warm - Poor pulses bilateral dorsalis pedis Results Laboratory Results: 03/12/20 04:26 03/11/20 19:29 03/11/20 03/12/20 19:29 04:26 WBC 12.3 H RBC 3.86 L Hgb 12.0 L Hct 35.7 L MCV 93 MCH 31.0 MCHC 33.6 RDW 14.4 H Plt Count 548 H Seg Neutrophils % 66.2 Sodium 133.8 L Potassium 4.7 Chloride 101 Carbon Dioxide 28 Anion Gap 5 BUN 8 Creatinine 0.58 Est GFR ( Amer) > 60 Glucose 179 H Calcium 9.5 03/10/20 16:10 Blood Blood Culture (PCR) - Final Staphylococcus Species 03/10/20 13:15 Blood Blood Culture (PCR) - Final 03/10/20 13:15 Troponin I 0.029 NT-Pro-B Natriuret Pep 938 H Impressions: Chest X-Ray 03/10/20 00:00 IMPRESSION: Bibasilar airspace opacities, may be secondary to atelectasis or pneumonia. Emphysema. Foot X-Ray 03/10/20 00:00 IMPRESSION: 1. Linear lucencies at the 1st, 2nd and 5th distal phalanges, may represent nondisplaced fractures versus artifact. Please correlate with point tenderness. 2. Diffuse soft tissue swelling at the left foot. Skin irregularity with small amount of gas at the tips of the 1st and 2nd toes, suggestive of soft tissue laceration/wound. Please correlate with clinical exam. 3. Thickened toenails with irregular edges. 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 Qualifiers: Non-pressure ulcer stage: unspecified non-pressure ulcer stage Qualified Code(s): L97.529 - Non-pressure chronic ulcer of other part of left foot with unspecified severity Is this a current diagnosis for this admission?: Yes Plan: Highly suspect osteomyelitis Left foot x-ray showed gas Empiric vancomycin/cefepime Blood culture sent General surgery consulted: Recommend BKA Likely combination of PVD and diabetes causing ulceration Scheduled for surgery 03/12/2020 Patient and family are in agreement with surgery (2) COPD (chronic obstructive pulmonary disease) Qualifiers: COPD type: unspecified COPD Qualified Code(s): J44.9 - Chronic obstructive pulmonary disease, unspecified Is this a current diagnosis for this admission?: Yes (3) Cellulitis in diabetic foot Is this a current diagnosis for this admission?: Yes (4) Diabetes mellitus, new onset Is this a current diagnosis for this admission?: Yes Plan: Hemoglobin A1c 10.3 No history of diabetes per patient Accu-Cheks, sliding scale insulin Will need to be on insulin at discharge per guidelines, can probably be transitioned to oral medications eventually Very responsive to insulin dosing (5) Peripheral vascular disease Is this a current diagnosis for this admission?: Yes (6) Sepsis Qualifiers: Sepsis type: sepsis due to unspecified organism Severe sepsis acute organ dysfunction type: unspecified Severe sepsis shock status: without septic shock Is this a current diagnosis for this admission?: Yes (7) Smoker Is this a current diagnosis for this admission?: Yes (8) Hyperlipidemia Is this a current diagnosis for this admission?: Yes Plan: Statin - Time Time Spent with patient: 25-34 minutes Medications reviewed and adjusted accordingly: Yes - Inpatient Certification Based on my medical assessment, after consideration of the patient's kelly rbidities, presenting symptoms, or acuity I expect that the services needed warrant INPATIENT care.: Yes I certify that my determination is in accordance with my understanding of Medicare's requirements for reasonable and necessary INPATIENT services [42 CFR 412.3e].: Yes Medical Necessity: Significant Comorbidiites Make Outpatient Treatment Too Risky, Need Close Monitoring Due to Risk of Patient Decompensation, Need for IV Antibiotics, Need for Surgery, Risk of Complication if Not Cared For in Hospital, Risk of Diagnosis Which Will Require Inpatient Eval/Care/Monitoring
--- NOTE | 2020-03-12 15:42 | RADIOLOGY REPORT (SQ) ---
EXAM DESCRIPTION: ARTERIAL LOWER EXTREM BILAT IMAGES COMPLETED DATE/TIME: 03/11/2020 8:07 pm REASON FOR STUDY: Ischemic left toes; define arterial pathoanatomy COMPARISON: None. TECHNIQUE: Dynamic and static brennan scale and color images acquired of the lower extremity arteries. Additional selected spectral images recorded. LIMITATIONS: None. FINDINGS: RIGHT LEG: INFLOW ARTERIES: Normal, no obstruction evident. FEMORAL ARTERIES:Multiphasic waveforms. Elevated velocity distal femoral artery 2.0 m/sec. POPLITEAL ARTERY:Biphasic waveforms. No significant stenosis. PATENT TIBIOPERONEAL TRUNK AND 3 VESSEL RUNOFF: Yes. Monophasic waveforms with spectral broadening i n the dorsalis pedis. OTHER: No other significant finding. LEFT LEG: INFLOW ARTERIES: Normal, no obstruction evident. FEMORAL ARTERIES:Multiphasic waveforms. Elevated velocity mid femoral artery 1.5 m/sec. POPLITEAL ARTERY:Biphasic waveforms. No significant stenosis. PATENT TIBIOPERONEAL TRUNK AND 3 VESSEL RUNOFF: Yes. Monophasic waveforms in the dorsalis pedis and peroneal arteries. OTHER: No other significant finding. IMPRESSION: Estimated 50% stenosis of both femoral arteries. Bilateral small vessel disease. TECHNICAL DOCUMENTATION: JOB ID: [id number] 2010 [employer]- All Rights Reserved Reading location - IP/workstation name: [email or web address]
[2020-03-12 15:59] LABS: ANION GAP 9 (5-19); BLOOD UREA NITROGEN 9 mg/dL (7-20); CALCIUM 9.7 mg/dL (8.4-10.2); CARBON DIOXIDE 24 mmol/L (22-30); CHLORIDE 103 mmol/L (98-107); GLUCOSE 117 mg/dL (75-110); POTASSIUM 4.8 mmol/L (3.6-5.0)
--- NOTE | 2020-03-12 16:31 | Operative Report ---
Nonrecallable Operative Report DATE OF SURGERY: 03/12/20 PREOPERATIVE DIAGNOSIS: Severe left diabetic foot infection POSTOPERATIVE DIAGNOSIS: Same as above OPERATION: Left below-knee amputation SURGEON: SCOTT DANIELS ANESTHESIA: GA TISSUE REMOVED OR ALTERED: Left lower leg and foot COMPLICATIONS: None apparent ESTIMATED BLOOD LOSS: 100 cc PROCEDURE: Drains/implants: 15 Occitan round Ezequiel drain within the flap. Procedure in detail: After informed consent was obtained, the patient was brought to the operating room and laid in the supine position. The area of the left lower extremity was prepped and draped in a normal sterile fashion. The leg was marked with a shorter anterior marking, and a longer posterior flap. 10 blade scalpel was used to make an incision through the skin, to the level of the fascia. Next, electrocautery was used to divide the fascia anteriorly, until the tibia was identified. The tibia was cleaned, and the skin was retracted superiorly. The muscles of the anterior compartment were divided using electrocautery. Next a lap sponge was passed posterior to the tibia to assist w ith retraction. Next a reciprocating bone saw was used to divide the tibia approximately 4 fingerbreadths below the tibial tuberosity. An anterior bevel was created with the reciprocating bone saw. Next, the anterior compartment was fully divided, and the fibula was exposed. The fibula was divided several centimeters proximal to the tibial division using large bone cutters. Next, the tibia and fibula were rotated anteriorly. The posterior compartment muscles were removed from the tibia and fibula using electrocautery. Once the tip of the flap was reached, electrocautery was used to divide the posterior compartment muscles. The foot and lower leg were then removed from the patient, passed off the field, and sent to pathology. Next, attention was turned to controlling of the neurovascular bundle. The artery and vein were clamped. The tibial nerve was isolated and placed under tension. Curved Mayos were used to divide the nerve as far proximally as could be performed. Next, the vasculature was ligated using 0 Vicryl suture ligation x2. Once this was completed, the muscles of the posterior flap were examined. They appeared to be healthy. The posterior fascia was rotated anteriorly, and sutured to the anterior fascia using interrupted 0 Vicryl suture. A 15 Occitan round Ezequiel drain was placed into the flap, and pulled out a separate stab incision prior to complete closure. Next the subcutaneous tissues were closed using 2-0 Vicryl suture in simple interrupted fashion. The skin was closed using skin adelia. A dressing was then fashioned, and the procedure was concluded. All sponge, instrument, and needle counts were correct x2. Condition: Stable.
[2020-03-12] MEDS ORDERED: HYDROCODONE/ACETAMINOPHEN 10-325 MG TABLET PO PRN (16:32)
[2020-03-12] MEDS: IBUPROFEN 800 MG TABLET PO SCH (18:18)
[2020-03-12] MEDS: ATORVASTATIN CALCIUM 40 MG TABLET PO SCH (21:46)
[2020-03-13] MEDS: RINGERS SOLUTION,LACTATED 1,000 ML IV PRN ×2 (02:14→18:43)
[2020-03-13] MEDS: HEPARIN SOD (PORCINE) 5,000 UNIT/ML 1 ML VIAL SUBCUT SCH ×3 (05:05→21:28)
[2020-03-13] MEDS: CEFEPIME HCL 2 GM in DEXTROSE 5%-WATER 50 ML IV SCH ×3 (05:06→21:27)
[2020-03-13] MEDS: VANCOMYCIN HCL 1,000 MG in DEXTROSE 5%-WATER 250 ML IV SCH ×2 (05:07→18:43)
[2020-03-13] MEDS: INSULIN LISPRO 100 UNIT/ML 3 ML VIAL SUBCUT SCH ×4 (09:21→21:27)
[2020-03-13] MEDS: IBUPROFEN 800 MG TABLET PO SCH ×3 (09:22→18:42)
[2020-03-13] MEDS: DOCUSATE SODIUM 100 MG CAPSULE PO SCH ×2 (09:28→18:42)
--- NOTE | 2020-03-13 11:33 | PDOC PROGRESS REPORT ---
Subjective Reason For Visit: OSTEOMYELITIS OF LEFT FOOT, T2DM, HTN Patient examined in room 403; he is sitting up in bed, politely confused. Knee immobilizer on. Physical Exam Vital Signs: Temp Pulse Resp BP Pulse Ox 98.8 F 82 19 121/69 98 03/13/20 08:42 03/13/20 08:42 03/13/20 08:42 03/13/20 08:42 03/13/20 08:42 Intake & Output 03/12/20 03/13/20 03/14/20 06:59 06:59 06:59 Intake Total 2650 1050 Output Total 1675 1620 Balance 975 -570 Weight 72.4 kg 72.4 kg General appearance: PRESENT: no acute distress Extremities exam: PRESENT: other - Knee immobilizer on; 20 cc serosanguineous fluid from drain. Results Laboratory Results: 03/12/20 04:26 03/12/20 04:26 03/12/20 04:26 Sodium 135.9 L Potassium 4.8 Chloride 103 Carbon Dioxide 24 Anion Gap 9 BUN 9 Creatinine 0.61 Est GFR ( Amer) > 60 Glucose 117 H Calcium 9.7 03/10/20 16:10 Blood Blood Culture (PCR) - Final Staphylococcus Species 03/10/20 13:15 Blood Blood Culture (PCR) - Final 03/10/20 13:15 Troponin I 0.029 NT-Pro-B Natriuret Pep 938 H Impressions: Chest X-Ray 03/10/20 00:00 IMPRESSION: Bibasilar airspace opacities, may be secondary to atelectasis or pneumonia. Emphysema. Foot X-Ray 03/10/20 00:00 IMPRESSION: 1. Linear lucencies at the 1st, 2nd and 5th distal phalanges, may represent nondisplaced fractures versus artifact. Please correlate with point tenderness. 2. Diffuse soft tissue swelling at the left foot. Skin irregularity with small amount of gas at the tips of the 1st and 2nd toes, suggestive of soft tissue laceration/wound. Please correlate with clinical exam. 3. Thickened toenails with irregular edges. 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 Bilateral small vessel disease. 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 We will get physical therapy involved; leave drain in today 2. Will discontinue Jones catheter 3. Will likely remove drain tomorrow. (2) Cellulitis in diabetic foot Is this a current diagnosis for this admission?: Yes (4) COPD (chronic obstructive pulmonary disease) Qualifiers: COPD type: unspecified COPD Qualified Code(s): J44.9 - Chronic obstructive pulmonary disease, unspecified Is this a current diagnosis for this admission?: Yes (5) Smoker Is this a current diagnosis for this admission?: Yes (6) Peripheral vascular disease Is this a current diagnosis for this admission?: Yes (7) Sepsis Qualifiers: Sepsis type: sepsis due to unspecified organism Severe sepsis acute organ dysfunction type: unspecified Severe sepsis shock status: without septic shock Is this a current diagnosis for this admission?: Yes
--- NOTE | 2020-03-13 14:20 | PDOC PROGRESS REPORT ---
Subjective Progress Note for:: 03/13/20 Subjective:: 03/11/2020 Patient seems to be doing a bit better today though he still oblivious to all of his medical problems. He is not oriented to anything but himself. I discussed all of his lab findings today and the fact that I believe he has diabetes, hyperlipidemia, hypertension. We talked again about his foot being infected and the need for amputation. I believe he has some significant underlying cognitive impairment very likely dementia. He does admit to having worsening memory loss over the last few years. I started him on a statin for his elevated cholestero l/LDL. His A1c is 10.3. Blood culture is pending and COVID is negative. He has no new complaints today. 03/12/2020 Patient seems to be doing well today. He seems rather oblivious to how sick he is and what exactly is wrong with his foot. He does remember parts of our conversation from yesterday in which I told him he needed surgery on his foot. General surgery has called the patient's daughter and spoke with them about the surgery and they are in agreement. I discussed with the patient that this surgery is needed to preserve the rest of his leg as well as his life given the infection will very likely continue to spread if we do not have surgical intervention. Patient is in full agreement with this plan and states he wants to have surgery. Otherwise, patient has no new complaints. 03/13/2020 Patient seems to be doing quite well today. He states his surgery went well but also appears a bit perplexed as to what surgery he actually had. I pointed at his newly amputated left stump and he seemed to remember some of what we have discussed every day that he has been here. He clearly has underlying dementia and his family will need to take this into account when they are planning his post hospital care. Patient has no new complaints today. Reason For Visit: OSTEOMYELITIS OF LEFT FOOT, T2DM, HTN Physical Exam Vital Signs: Temp Pulse Resp BP Pulse Ox 98.8 F 75 16 133/71 H 99 03/13/20 11:14 03/13/20 11:14 03/13/20 11:14 03/13/20 11:14 03/13/20 11:14 Intake & Output 03/12/20 03/13/20 03/14/20 06:59 06:59 06:59 Intake Total 2650 1050 Output Total 1675 1620 Balance 975 -570 Weight 72.4 kg 72.4 kg General appearance: PRESENT: no acute distress, well-developed, well-nourished Head exam: PRESENT: atraumatic, normocephalic Eye exam: PRESENT: conjunctiva pink Mouth exam: PRESENT: moist Respiratory exam: PRESENT: clear to auscultation brenda. ABSENT: rales, rhonchi, wheezes Cardiovascular exam: PRESENT: RRR. ABSENT: diastolic murmur, rubs, systolic murmur GI/Abdominal exam: PRESENT: normal bowel sounds, soft. ABSENT: distended, guarding, mass, organolmegaly, rebound, tenderness Extremities exam: PRESENT: other - Well-appearing left BKA stump. ABSENT: pedal edema Neurological exam: PRESENT: alert, awake, oriented to person. ABSENT: oriented to place, oriented to time, oriented to situation Psychiatric exam: PRESENT: appropriate affect Skin exam: PRESENT: dry, intact, warm Results Laboratory Results: 03/12/20 04:26 03/12/20 04:26 03/12/20 04:26 Sodium 135.9 L Potassium 4.8 Chloride 103 Carbon Dioxide 24 Anion Gap 9 BUN 9 Creatinine 0.61 Est GFR ( Amer) > 60 Glucose 117 H Calcium 9.7 03/10/20 16:10 Blood Blood Culture (PCR) - Final Staphylococcus Species 03/10/20 13:15 Blood Blood Culture (PCR) - Final 03/10/20 13:15 Troponin I 0.029 NT-Pro-B Natriuret Pep 938 H Impressions: Chest X-Ray 03/10/20 00:00 IMPRESSION: Bibasilar airspace opacities, may be secondary to atelectasis or pneumonia. Emphysema. Foot X-Ray 03/10/20 00:00 IMPRESSION: 1. Linear lucencies at the 1st, 2nd and 5th distal phalanges, may represent nondisplaced fractures versus artifact. Please correlate with point tenderness. 2. Diffuse soft tissue swelling at the left foot. Skin irregularity with small amount of gas at the tips of the 1st and 2nd toes, suggestive of soft tissue laceration/wound. Please correlate with clinical exam. 3. Thickened toenails with irregular edges. 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 Bilateral small vessel disease. 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 Qualifiers: Non-pressure ulcer stage: unspecified non-pressure ulcer stage Qualified Code(s): L97.529 - Non-pressure chronic ulcer of other part of left foot with unspecified severity Is this a current diagnosis for this admission?: Yes Plan: Highly suspect osteomyelitis Left foot x-ray showed gas Empiric vancomycin/cefepime, de-escalate antibiotics as results come back Blood cultures growing staph, sensitivities pending General surgery consulted: Performed BKA 03/12 Likely combination of PVD and diabetes causing ulceration Patient and family are in agreement with surgery (2) COPD (chronic obstructive pulmonary disease) Qualifiers: COPD type: unspecified COPD Qualified Code(s): J44.9 - Chronic obstructive pulmonary disease, unspecified Is this a current diagnosis for this admission?: Yes (3) Cellulitis in diabetic foot Is this a current diagnosis for this admission?: Yes (4) Diabetes mellitus, new onset Is this a current diagnosis for this admission?: Yes (5) Peripheral vascular disease Is this a current diagnosis for this admission?: Yes (6) Sepsis Qualifiers: Sepsis type: sepsis due to unspecified organism Severe sepsis acute organ dysfunction type: unspecified Severe sepsis shock status: without septic shock Is this a current diagnosis for this admission?: Yes (7) Smoker Is this a current diagnosis for this admission?: Yes (8) Hyperlipidemia Is this a current diagnosis for this admission?: Yes (9) Dementia Is this a current diagnosis for this admission?: Yes Plan: 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 Would benefit from neuropsychiatric evaluation outpatient - Time Time Spent with patient: 15-24 minutes Medications reviewed and adjusted accordingly: Yes Anticipated discharge: SNF Within: within 72 hours - Inpatient Certification Based on my medical assessment, after consideration of the patient's comorbidities, presenting symptoms, or acuity I expect that the services needed warrant INPATIENT care.: Yes I certify that my determination is in accordance with my understanding of Medicare's requirements for reasonable and necessary INPATIENT services [42 CFR 412.3e].: Yes Medical Necessity: Significant Comorbidiites Make Outpatient Treatment Too Risky, Need Close Monitoring Due to Risk of Patient Decompensation, Need for IV Antibiotics, Risk of Complication if Not Cared For in Hospital, Risk of Diagnos is Which Will Require Inpatient Eval/Care/Monitoring
[2020-03-13] MEDS: ATORVASTATIN CALCIUM 40 MG TABLET PO SCH (21:27)
[2020-03-14] MEDS: RINGERS SOLUTION,LACTATED 1,000 ML IV PRN (00:15)
[2020-03-14] MEDS: CEFEPIME HCL 2 GM in DEXTROSE 5%-WATER 50 ML IV SCH ×3 (05:41→21:32)
[2020-03-14] MEDS: VANCOMYCIN HCL 1,000 MG in DEXTROSE 5%-WATER 250 ML IV SCH ×2 (05:41→18:32)
[2020-03-14] MEDS: HEPARIN SOD (PORCINE) 5,000 UNIT/ML 1 ML VIAL SUBCUT SCH ×3 (05:44→21:38)
[2020-03-14] MEDS: INSULIN LISPRO 100 UNIT/ML 3 ML VIAL SUBCUT SCH ×4 (08:00→21:32)
[2020-03-14] MEDS: IBUPROFEN 800 MG TABLET PO SCH ×3 (10:49→18:32)
[2020-03-14] MEDS: METFORMIN HCL 500 MG TABLET PO SCH ×2 (10:49→18:32)
[2020-03-14] MEDS: DOCUSATE SODIUM 100 MG CAPSULE PO SCH ×3 (10:49→18:32)
[2020-03-14] MEDS: SITAGLIPTIN PHOSPHATE 25 MG TABLET PO SCH (11:11)
--- NOTE | 2020-03-14 13:56 | Progress Note ---
Provider Note Provider Note: [facility] Telephone Advice Consultation Chart reviewed. Patient is a 84-year-old man without known medical history or any medical follow up who was taken to the hospital due to severe infection of the left foot. He was admitted on 03/10 and was started on vancomcyin and cefepime. He was evaluated by surgery service. He had an X ray of the foot that showed changes in 1st, 2nd and 5th distal phalanges, non displaced fractures. His left great toe was necrotic. His distal pulses were decreased/absent. Evaluation of arterial circulation showed 50% stenosis of both femoral arteries. 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 Blood cultures on 03/10 had 2 different morphotypes of Staphylococcus epidermidis, one MSSE and the other MRSE. Patient is afebrile, HD stable, mild leukocytosis. ID consulted for recommendations. PMH: PVD Foot infection PSH: BKA (03/12/2020) Allergies: No Known Allergies Allergy (Unverified 03/11/20 08:19) Medications: No Home Medications 03/11/20 Vital Signs: Temp Pulse Resp BP Pulse Ox 98.0 F 73 16 163/75 H 99 03/14/20 10:39 03/14/20 10:39 03/14/20 10:39 03/14/20 10:39 03/14/20 10:39 Intake & Output 03/13/20 03/14/20 03/15/20 06:59 06:59 06:59 Intake Total 1300 2335 250 Output Total 1620 1695 Balance -320 640 250 Weight 72.4 kg 72.4 kg Weight/Height Weight 72.4 kg Height 5 ft 9 in Laboratories: 03/12/20 04:26 03/12/20 04:26 MCV 93 fl (80-97) 03/12/20 04:26 MCH 31.0 pg (27.0-33.4) 03/12/20 04:26 MCHC 33.6 g/dL (32.0-36.0) 03/12/20 04:26 RDW 14.4 % (11.5-14.0) H 03/12/20 04:26 Seg Neutrophils % 66.2 % (42-78) 03/12/20 04:26 VBG pH 7.38 (7.30-7.42) 03/10/20 16:10 VBG pCO2 48.6 mmHg (35-63) 03/10/20 16:10 VBG HCO3 28.0 mmol/L (20-32) 03/10/20 16:10 VBG Base Excess 2.1 mmol/L 03/10/20 16:10 Chloride 103 mmol/L (98-107) 03/12/20 04:26 Carbon Dioxide 24 mmol/L (22-30) 03/12/20 04:26 Anion Gap 9 (5-19) 03/12/20 04:26 Est GFR ( Amer) > 60 (>60) 03/12/20 04:26 Glucose 117 mg/dL (75-110) H 03/12/20 04:26 Lactic Acid 2.4 mmol/L (0.7-2.1) H 03/10/20 16:10 Calcium 9.7 mg/dL (8.4-10.2) 03/12/20 04:26 Magnesium 1.7 mg/dL (1.6-2.3) 03/11/20 04:23 Total Bilirubin 0.6 mg/dL (0.2-1.3) 03/10/20 13:15 AST 23 U/L (17-59) 03/10/20 13:15 Alkaline Phosphatase 98 U/L (38-126) 03/10/20 13:15 Total Protein 8.0 g/dL (6.3-8.2) 03/10/20 13:15 Albumin 3.6 g/dL (3.5-5.0) 03/10/20 13:15 Triglycerides 165 mg/dL (<150) H 03/11/20 04:23 Cholesterol 205.38 mg/dL (0-200) H 03/11/20 04:23 LDL Cholesterol Direct 141 mg/dL (<100) H 03/11/20 04:23 VLDL Cholesterol 33.0 mg/dL (10-31) H 03/11/20 04:23 HDL Cholesterol 35 mg/dL (>40) L 03/11/20 04:23 TSH 2.35 uIU/mL (0.47-4.68) 03/11/20 04:23 Free T4 1.01 ng/dL (0.78-2.19) 03/11/20 04:23 Urine Color YELLOW 03/10/20 17:56 Urine Appearance CLEAR 03/10/20 17:56 Urine pH 7.0 (5.0-9.0) 03/10/20 17:56 Ur Specific [place] 1.016 03/10/20 17:56 Urine Protein 30 mg/dL (NEGATIVE) H 03/10/20 17:56 Urine Glucose (UA) >=500 mg/dL (NEGATIVE) H 03/10/20 17:56 Urine Ketones NEGATIVE mg/dL (NEGATIVE) 03/10/20 17:56 Urine Blood NEGATIVE (NEGATIVE) 03/10/20 17:56 Urine Nitrite NEGATIVE (NEGATIVE) 03/10/20 17:56 Ur Leukocyte Esterase NEGATIVE (NEGATIVE) 03/10/20 17:56 Urine WBC (Auto) 0 /HPF 03/10/20 17:56 Urine RBC (Auto) 2 /HPF 03/10/20 17:56 03/10/20 16:10 Blood Blood Culture (PCR) - Final Staphylococcus Species 03/10/20 16:10 Blood Blood Culture - Final Staphylococcus Epidermidis#2 Staphylococcus Epidermidis 03/10/20 13:15 Blood Blood Culture (PCR) - Final 03/10/20 13:15 Blood Blood Culture - Final Staphylococcus Epidermidis 03/10/20 13:15 Troponin I 0.029 NT-Pro-B Natriuret Pep 938 H Radiology: Chest X-Ray 03/10/20 00:00 IMPRESSION: Bibasilar airspace opacities, may be secondary to atelectasis or pneumonia. Emphysema. Foot X-Ray 03/10/20 00:00 IMPRESSION: 1. Linear lucencies at the 1st, 2nd and 5th distal phalanges, may represent nondisplaced fractures versus artifact. Please correlate with point tenderness. 2. Diffuse soft tissue swelling at the left foot. Skin irregularity with small amount of gas at the tips of the 1st and 2nd toes, suggestive of soft tissue laceration/wound. Please correlate with clinical exam. 3. Thickened toenails with irregular edges. 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 Bilateral small vessel disease. Assessment and Recommendations: Patient evaluated for MRSE and MSSE positive blood cultures. Patient originally admitted due to left foot infection with necrosis of the first toe. He is s/p amputation with eradication of the infection. He had BKA and per notes, the stump looks ok. He is afebrile, HD stable. Leukocytosis is mild and stable. Blood cultures results likely represent contamination as there are 2 different morphotypes of Staphylococcus epidermidis. He has received 48 hr of antibiotics post surgery. Will recommend to repeat CBC and if no signs of infection at the level of the stump, can discontinue antibiotics. Please call if questions. Alicja Tom MD [facility] [phone]
--- NOTE | 2020-03-14 15:23 | PDOC PROGRESS REPORT ---
Subjective Progress Note for:: 03/14/20 Reason For Visit: OSTEOMYELITIS OF LEFT FOOT, T2DM, HTN Physical Exam Vital Signs: Temp Pulse Resp BP Pulse Ox 98.0 F 73 16 163/75 H 99 03/14/20 10:39 03/14/20 10:39 03/14/20 10:39 03/14/20 10:39 03/14/20 10:39 Intake & Output 03/13/20 03/14/20 03/15/20 06:59 06:59 06:59 Intake Total 1300 2335 750 Output Total 1620 1695 150 Balance -320 640 600 Weight 72.4 kg 72.4 kg Results Laboratory Results: 03/12/20 04:26 03/12/20 04:26 03/10/20 16:10 Blood Blood Culture (PCR) - Final Staphylococcus Species 03/10/20 16:10 Blood Blood Culture - Final Staphylococcus Epidermidis#2 Staphylococcus Epidermidis 03/10/20 13:15 Blood Blood Culture (PCR) - Final 03/10/20 13:15 Blood Blood Culture - Final Staphylococcus Epidermidis 03/10/20 13:15 Troponin I 0.029 NT-Pro-B Natriuret Pep 938 H Impressions: Chest X-Ray 03/10/20 00:00 IMPRESSION: Bibasilar airspace opacities, may be secondary to atelectasis or pneumonia. Emphysema. Foot X-Ray 03/10/20 00:00 IMPRESSION: 1. Linear lucencies at the 1st, 2nd and 5th distal phalanges, may represent nondisplaced fractures versus artifact. Please correlate with point tenderness. 2. Diffuse soft tissue swelling at the left foot. Skin irregularity with small amount of gas at the tips of the 1st and 2nd toes, suggestive of soft tissue laceration/wound. Please correlate with clinical exam. 3. Thickened toenails with irregular edges. 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 Bilateral small vessel disease. Assessment & Plan - Diagnosis (1) Gangrene of left foot Is this a current diagnosis for this admission?: Yes (2) Diabetes mellitus, new onset Is this a current diagnosis for this admission?: Yes (3) Peripheral vascular disease Is this a current diagnosis for this admission?: Yes - Plan Summary Plan Summary: 84-year-old male status post below-knee amputation. His amputation stump is wrapped. He has a small amount of blood in the [place] drain. He has no complaints this morning. Leave amputation stump wrapped today. Leave [place] drain in place. Leave knee immobilizer in place. Surgery will continue to follow.
--- NOTE | 2020-03-14 19:08 | PDOC PROGRESS REPORT ---
Subjective Progress Note for:: 03/14/20 Subjective:: 03/11/2020 Patient seems to be doing a bit better today though he still oblivious to all of his medical problems. He is not oriented to anything but himself. I discussed all of his lab findings today and the fact that I believe he has diabetes, hyperlipidemia, hypertension. We talked again about his foot being infected and the need for amputation. I believe he has some significant underlying cognitive impairment very likely dementia. He does admit to having worsening memory loss over the last few years. I started him on a statin for his elevated cholestero l/LDL. His A1c is 10.3. Blood culture is pending and COVID is negative. He has no new complaints today. 03/12/2020 Patient seems to be doing well today. He seems rather oblivious to how sick he is and what exactly is wrong with his foot. He does remember parts of our conversation from yesterday in which I told him he needed surgery on his foot. General surgery has called the patient's daughter and spoke with them about the surgery and they are in agreement. I discussed with the patient that this surgery is needed to preserve the rest of his leg as well as his life given the infection will very likely continue to spread if we do not have surgical intervention. Patient is in full agreement with this plan and states he wants to have surgery. Otherwise, patient has no new complaints. 03/13/2020 Patient seems to be doing quite well today. He states his surgery went well but also appears a bit perplexed as to what surgery he actually had. I pointed at his newly amputated left stump and he seemed to remember some of what we have discussed every day that he has been here. He clearly has underlying dementia and his family will need to take this into account when they are planning his post hospital care. Patient has no new complaints today. 03/14/2020 Patient is seen to be doing well again today. He is continued on broad-spectrum antibiotics but will likely only need a short course of this now that we have good source control from his amputation. His blood sugar has been a bit labile depending on his diet here. I have started him on metformin and Januvia which seems to be quite effective. I recommended the patient consider insulin but he is very adamant that he has no intention of using insulin in the future and states that there will be no consistent use of needles if it is prescribed for him for any reason. Oral diabetes medications will likely be the only option for him. He will need disposition to SNF. Otherwise he has no new complaints. Reason For Visit: OSTEOMYELITIS OF LEFT FOOT, T2DM, HTN Physical Exam Vital Signs: Temp Pulse Resp BP Pulse Ox 97.8 F 78 16 137/72 H 100 03/14/20 15:52 03/14/20 15:52 03/14/20 15:52 03/14/20 15:52 03/14/20 15:52 Intake & Output 03/13/20 03/14/20 03/15/20 06:59 06:59 06:59 Intake Total 1300 2335 750 Output Total 1620 1695 160 Balance -320 640 590 Weight 72.4 kg 72.4 kg General appearance: PRESENT: no acute distress, well-developed, well-nourished Head exam: PRESENT: atraumatic, normocephalic Eye exam: PRESENT: conjunctiva pink Mouth exam: PRESENT: moist Respiratory exam: PRESENT: clear to auscultation brenda. ABSENT: rales, rhonchi, wheezes Cardiovascular exam: PRESENT: RRR. ABSENT: diastolic murmur, rubs, systolic murmur GI/Abdominal exam: PRESENT: normal bowel sounds, soft. ABSENT: distended, guarding, mass, organolmegaly, rebound, tenderness Extremities exam: PRESENT: other - Left leg amputation BKA stump well-appearing Neurological exam: PRESENT: alert, awake, oriented to person. ABSENT: oriented to place, oriented to time, oriented to situation Psychiatric exam: PRESENT: appropriate affect Skin exam: PRESENT: dry, intact, warm Results Laboratory Results: 03/12/20 04:26 03/12/20 04:26 03/10/20 16:10 Blood Blood Culture (PCR) - Final Staphylococcus Species 03/10/20 16:10 Blood Blood Culture - Final Staphylococcus Epidermidis#2 Staphylococcus Epidermidis 03/10/20 13:15 Blood Blood Culture (PCR) - Final 03/10/20 13:15 Blood Blood Culture - Final Staphylococcus Epidermidis 03/10/20 13:15 Troponin I 0.029 NT-Pro-B Natriuret Pep 938 H Impressions: Chest X-Ray 03/10/20 00:00 IMPRESSION: Bibasilar airspace opacities, may be secondary to atelectasis or pneumonia. Emphysema. Foot X-Ray 03/10/20 00:00 IMPRESSION: 1. Linear lucencies at the 1st, 2nd and 5th distal phalanges, may represent nondisplaced fractures versus artifact. Please correlate with point tenderness. 2. Diffuse soft tissue swelling at the left foot. Skin irregularity with small amount of gas at the tips of the 1st and 2nd toes, suggestive of soft tissue laceration/wound. Please correlate with clinical exam. 3. Thickened toenails with irregular edges. 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 Bilateral small vessel disease. 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 Qualifiers: Non-pressure ulcer stage: unspecified non-pressure ulcer stage Qualified Code(s): L97.529 - Non-pressure chronic ulcer of other part of left foot with unspecified severity Is this a current diagnosis for this admission?: Yes Plan: Highly suspect osteomyelitis Left foot x-ray showed gas Empiric vancomycin/cefepime, de-escalate antibiotics as results come back Blood cultures growing staph, sensitivities pending General surgery consulted: Performed BKA 03/12 Likely combination of PVD and diabetes causing ulceration Patient and family are in agreement with surgery Continued on broad-spectrum antibiotics, likely will need only short course given we have source control from amputation (2) COPD (chronic obstructive pulmonary disease) Qualifiers: COPD type: unspecified COPD Qualified Code(s): J44.9 - Chronic obstructive pulmonary disease, unspecified Is this a current diagnosis for this admission?: Yes (3) Cellulitis in diabetic foot Is this a current diagnosis for this admission?: Yes (4) Diabetes mellitus, new onset Is this a current diagnosis for this admission?: Yes Plan: Hemoglobin A1c 10.3 No history of diabetes per patient Accu-Cheks, sliding scale insulin Will need to be on insulin at discharge per guidelines, can probably be transitioned to oral medications eventually Very responsive to insulin dosing Patient adamantly refuses to using any insulin after leaving the hospital. Started metformin and Januvia which patient is agreeable to taking and seems to be effective (5) Peripheral vascular disease Is this a current diagnosis for this admission?: Yes (6) Sepsis Qualifiers: Sepsis type: sepsis due to unspecified organism Severe sepsis acute organ dysfunction type: unspecified Severe sepsis shock status: without septic shock Is this a current diagnosis for this admission?: Yes (7) Smoker Is this a current diagnosis for this admission?: Yes Plan: Not interested in quitting, intends to continue smoking Nicotine patch while hospitalized (8) Hyperlipidemia Is this a current diagnosis for this admission?: Yes (9) Dementia Is this a current diagnosis for this admission?: Yes - Time Time Spent with patient: 25-34 minutes Within: within 72 hours - Inpatient Certification Based on my medical assessment, after consideration of the patient's comorbidities, presenting symptoms, or acuity I expect that the services needed warrant INPATIENT care.: Yes I certify that my determination is in accordance with my understanding of Medicare's requirements for reasonable and necessary INPATIENT services [42 CFR 412.3e].: Yes Medical Necessity: Significant Comorbidiites Make Outpatient Treatment Too Risky, Need Close Monitoring Due to Risk of Patient Decompensation, Need for IV Antibiotics, Risk of Complication if Not Cared For in Hospital, Risk of Diagnosis Which Will Require Inpatient Eval/Care/Monitoring
[2020-03-14] MEDS: NICOTINE 21 MG/24 HR PATCH.TD24 TD SCH (20:41)
[2020-03-14] MEDS: ATORVASTATIN CALCIUM 40 MG TABLET PO SCH (21:33)
[2020-03-15] MEDS: HEPARIN SOD (PORCINE) 5,000 UNIT/ML 1 ML VIAL SUBCUT SCH ×3 (05:06→21:40)
[2020-03-15] MEDS: CEFEPIME HCL 2 GM in DEXTROSE 5%-WATER 50 ML IV SCH ×3 (05:07→21:44)
[2020-03-15] MEDS: VANCOMYCIN HCL 1,000 MG in DEXTROSE 5%-WATER 250 ML IV SCH ×2 (05:50→17:16)
[2020-03-15] MEDS: INSULIN LISPRO 100 UNIT/ML 3 ML VIAL SUBCUT SCH ×4 (07:44→21:40)
[2020-03-15] MEDS: IBUPROFEN 800 MG TABLET PO SCH ×3 (07:52→16:09)
[2020-03-15] MEDS: METFORMIN HCL 500 MG TABLET PO SCH ×2 (07:52→16:09)
--- NOTE | 2020-03-15 08:36 | PDOC PROGRESS REPORT ---
Subjective Progress Note for:: 03/15/20 Reason For Visit: OSTEOMYELITIS OF LEFT FOOT, T2DM, HTN Physical Exam Vital Signs: Temp Pulse Resp BP Pulse Ox 97.8 F 80 20 129/69 H 97 03/15/20 00:01 03/15/20 00:01 03/15/20 00:01 03/15/20 00:01 03/15/20 00:01 Intake & Output 03/14/20 03/15/20 03/16/20 06:59 06:59 06:59 Intake Total 2335 1150 Output Total 1695 955 Balance 640 195 Weight 72.4 kg 72.4 kg General appearance: PRESENT: no acute distress Head exam: PRESENT: normocephalic Eye exam: PRESENT: EOMI Ear exam: PRESENT: normal external ear exam Mouth exam: PRESENT: moist Teeth exam: PRESENT: poor dentation Neck exam: PRESENT: full ROM Respiratory exam: PRESENT: clear to auscultation brenda Cardiovascular exam: PRESENT: RRR Breast: PRESENT: Normal GI/Abdominal exam: PRESENT: soft Rectal exam: PRESENT: deferred Extremities exam: PRESENT: other - rt bka stump Musculoskeletal exam: PRESENT: full ROM Neurological exam: PRESENT: alert, awake, oriented to person, oriented to place Psychiatric exam: PRESENT: agitated - s/p rt bka wound clean dry\ drain removed adelia to be removed in 10 days surgery will sign off now reconsult as necessary f/u in surgery clinic in 7-10days. Skin exam: PRESENT: dry Results Laboratory Results: 03/12/20 04:26 03/12/20 04:26 03/10/20 16:10 Blood Blood Culture (PCR) - Final Staphylococcus Species 03/10/20 16:10 Blood Blood Culture - Final Staphylococcus Epidermidis#2 Staphylococcus Epidermidis 03/10/20 13:15 Blood Blood Culture (PCR) - Final 03/10/20 13:15 Blood Blood Culture - Final Staphylococcus Epidermidis 03/10/20 13:15 Troponin I 0.029 NT-Pro-B Natriuret Pep 938 H Impressions: Chest X-Ray 03/10/20 00:00 IMPRESSION: Bibasilar airspace opacities, may be secondary to atelectasis or pneumonia. Emphysema. Foot X-Ray 03/10/20 00:00 IMPRESSION: 1. Linear lucencies at the 1st, 2nd and 5th distal phalanges, may represent nondisplaced fractures versus artifact. Please correlate with point tenderness. 2. Diffuse soft tissue swelling at the left foot. Skin irregularity with small amount of gas at the tips of the 1st and 2nd toes, suggestive of soft tissue laceration/wound. Please correlate with clinical exam. 3. Thickened toenails with irregular edges. 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 Bilateral small vessel disease.
[2020-03-15] MEDS: DOCUSATE SODIUM 100 MG CAPSULE PO SCH ×3 (09:33→17:18)
[2020-03-15] MEDS: SITAGLIPTIN PHOSPHATE 25 MG TABLET PO SCH (10:41)
[2020-03-15] MEDS: NICOTINE 21 MG/24 HR PATCH.TD24 TD SCH (10:43)
--- NOTE | 2020-03-15 11:15 | PDOC PROGRESS REPORT ---
Subjective Progress Note for:: 03/15/20 Subjective:: 03/11/2020 Patient seems to be doing a bit better today though he still oblivious to all of his medical problems. He is not oriented to anything but himself. I discussed all of his lab findings today and the fact that I believe he has diabetes, hyperlipidemia, hypertension. We talked again about his foot being infected and the need for amputation. I believe he has some significant underlying cognitive impairment very likely dementia. He does admit to having worsening memory loss over the last few years. I started him on a statin for his elevated cholestero l/LDL. His A1c is 10.3. Blood culture is pending and COVID is negative. He has no new complaints today. 03/12/2020 Patient seems to be doing well today. He seems rather oblivious to how sick he is and what exactly is wrong with his foot. He does remember parts of our conversation from yesterday in which I told him he needed surgery on his foot. General surgery has called the patient's daughter and spoke with them about the surgery and they are in agreement. I discussed with the patient that this surgery is needed to preserve the rest of his leg as well as his life given the infection will very likely continue to spread if we do not have surgical intervention. Patient is in full agreement with this plan and states he wants to have surgery. Otherwise, patient has no new complaints. 03/13/2020 Patient seems to be doing quite well today. He states his surgery went well but also appears a bit perplexed as to what surgery he actually had. I pointed at his newly amputated left stump and he seemed to remember some of what we have discussed every day that he has been here. He clearly has underlying dementia and his family will need to take this into account when they are planning his post hospital care. Patient has no new complaints today. 03/14/2020 Patient is seen to be doing well again today. He is continued on broad-spectrum antibiotics but will likely only need a short course of this now that we have good source control from his amputation. His blood sugar has been a bit labile depending on his diet here. I have started him on metformin and Januvia which seems to be quite effective. I recommended the patient consider insulin but he is very adamant that he has no intention of using insulin in the future and states that there will be no consistent use of needles if it is prescribed for him for any reason. Oral diabetes medications will likely be the only option for him. He will need disposition to SNF. Otherwise he has no new complaints. 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 Dr. Delgado saw the patient today. No acute events in last 24 hours. Afebrile. Patient is presently on cefepime and vancomycin. Cultures from 628 indicates Staphylococcus epidermidis. wBC count is improving. T-max is 97.8. Reason For Visit: OSTEOMYELITIS OF LEFT FOOT, T2DM, HTN Physical Exam Vital Signs: Temp Pulse Resp BP Pulse Ox 97.9 F 73 20 133/78 H 100 03/15/20 08:13 03/15/20 08:13 03/15/20 08:13 03/15/20 08:13 03/15/20 08:13 Intake & Output 03/14/20 03/15/20 03/16/20 06:59 06:59 06:59 Intake Total 2335 1150 Output Total 1695 955 Balance 640 195 Weight 72.4 kg 72.4 kg General appearance: PRESENT: no acute distress, well-developed Head exam: PRESENT: atraumatic Eye exam: PRESENT: PERRLA Mouth exam: PRESENT: moist, tongue midline Teeth exam: PRESENT: poor dentation Neck exam: ABSENT: carotid bruit, JVD, lymphadenopathy, thyromegaly Respiratory exam: PRESENT: decreased breath sounds Cardiovascular exam: PRESENT: RRR. ABSENT: diastolic murmur, rubs, systolic murmur GI/Abdominal exam: PRESENT: normal bowel sounds, soft. ABSENT: distended, guarding, mass, organolmegaly, rebound, tenderness Rectal exam: PRESENT: deferred Extremities exam: PRESENT: other - Left BKA present and stump is wrapped with Brian wrap. Neurological exam: PRESENT: alert, awake, oriented to person, oriented to place, oriented to time, oriented to situation, CN II-XII grossly intact. ABSENT: motor sensory deficit Psychiatric exam: PRESENT: appropriate affect, normal mood. ABSENT: homicidal ideation, suicidal ideation Results Laboratory Results: 03/12/20 04:26 03/12/20 04:26 03/10/20 16:10 Blood Blood Culture (PCR) - Final Staphylococcus Species 03/10/20 16:10 Blood Blood Culture - Final Staphylococcus Epidermidis#2 Staphylococcus Epidermidis 03/10/20 13:15 Blood Blood Culture (PCR) - Final 03/10/20 13:15 Blood Blood Culture - Final Staphylococcus Epidermidis 03/10/20 13:15 Troponin I 0.029 NT-Pro-B Natriuret Pep 938 H Impressions: Chest X-Ray 03/10/20 00:00 IMPRESSION: Bibasilar airspace opacities, may be secondary to atelectasis or pneumonia. Emphysema. Foot X-Ray 03/10/20 00:00 IMPRESSION: 1. Linear lucencies at the 1st, 2nd and 5th distal phalanges, may represent nondisplaced fractures versus artifact. Please correlate with point tenderness. 2. Diffuse soft tissue swelling at the left foot. Skin irregularity with small amount of gas at the tips of the 1st and 2nd toes, suggestive of soft tissue laceration/wound. Please correlate with clinical exam. 3. Thickened toenails with irregular edges. 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 Bilateral small vessel disease. 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 Qualifiers: Non-pressure ulcer stage: unspecified non-pressure ulcer stage Qualified Code(s): L97.529 - Non-pressure chronic ulcer of other part of left foot with unspecified severity Is this a current diagnosis for this admission?: Yes Plan: Highly suspect osteomyelitis Left foot x-ray showed gas Empiric vancomycin/cefepime, de-escalate antibiotics as results come back Blood cultures growing staph, sensitivities pending General surgery consulted: Performed BKA 03/12 Likely combination of PVD and diabetes causing ulceration Patient and family are in agreement with surgery Continued on broad-spectrum antibiotics, likely will need only short course given we have source control from amputation 03/15/2020-blood cultures positive for staph epidermidis. Patient is presently on IV cefepime and vancomycin. Status post left BKA on 03/12. Plan is to continue IV antibiotics for at least next 2 days. (2) COPD (chronic obstructive pulmonary disease) Qualifiers: COPD type: unspecified COPD Qualified Code(s): J44.9 - Chronic obstructive pulmonary disease, unspecified Is this a current diagnosis for this admission?: No Plan: Current smoker continues to smoke, is not interested in quitting As needed duo cristopher Stable breathing (3) Cellulitis in diabetic foot Is this a current diagnosis for this admission?: Yes Plan: As above Needs long-term follow-up with podiatry (4) Diabetes mellitus, new onset Is this a current diagnosis for this admission?: Yes Plan: Hemoglobin A1c 10.3 No history of diabetes per patient Accu-Cheks, sliding scale insulin Will need to be on insulin at discharge per guidelines, can probably be transitioned to oral medications eventually Very responsive to insulin dosing Patient adamantly refuses to using any insulin after leaving the hospital. Started metformin and Januvia which patient is agreeable to taking and seems to be effective 03/15/2020-latest blood sugar is 143. Hemoglobin A1c is 10.3. Was started on metformin and Januvia. He is also on insulin sliding scale. Dietary consult will be requested.
[2020-03-15] MEDS: ATORVASTATIN CALCIUM 40 MG TABLET PO SCH (21:43)
[2020-03-16] MEDS: HEPARIN SOD (PORCINE) 5,000 UNIT/ML 1 ML VIAL SUBCUT SCH ×3 (05:00→21:09)
[2020-03-16] MEDS: CEFEPIME HCL 2 GM in DEXTROSE 5%-WATER 50 ML IV SCH ×3 (05:04→21:11)
[2020-03-16] MEDS: RINGERS SOLUTION,LACTATED 1,000 ML IV PRN ×3 (05:06→21:17)
[2020-03-16] MEDS: VANCOMYCIN HCL 1,000 MG in DEXTROSE 5%-WATER 250 ML IV SCH ×2 (05:49→18:22)
[2020-03-16 06:59] LABS: ABSOLUTE BASOPHILS # (AUTO) 0.1 10^3/uL (0.0-0.2); ABSOLUTE EOSINOPHILS # (AUTO) 0.8 10^3/uL (0.0-0.6); ABSOLUTE LYMPHOCYTES (AUTO) 2.3 10^3/uL (0.5-4.7); ABSOLUTE MONOCYTES (AUTO) 1.8 10^3/uL (0.1-1.4); BASOPHILS % (AUTO) 0.9 % (0-2); EOSINOPHILS % (AUTO) 5.9 % (0-6); HEMATOCRIT 30.6 % (37.9-51.0); HEMOGLOBIN 10.3 g/dL (13.5-17.0); LYMPHOCYTES % (AUTO) 17.6 % (13-45); MEAN CORPUSCULAR HEMOGLOBIN 31.5 pg (27.0-33.4); MEAN CORPUSCULAR HGB CONC 33.8 g/dL (32.0-36.0); MEAN CORPUSCULAR VOLUME 93 fl (80-97); MONOCYTES % (AUTO) 13.7 % (3-13); PLATELET COUNT 578 10^3/uL (150-450); RED BLOOD COUNT 3.29 10^6/uL (4.35-5.55); RED CELL DISTRIBUTION WIDTH 14.9 % (11.5-14.0); SEGMENTED NEUTROPHILS % (AUTO) 61.9 % (42-78); TOTAL CELLS COUNTED % (AUTO) 100 %; WHITE BLOOD COUNT 12.9 10^3/uL (4.0-10.5)
[2020-03-16 07:22] LABS: ALBUMIN 3.2 g/dL (3.5-5.0); ALKALINE PHOSPHATASE 71 U/L (38-126); ANION GAP 7 (5-19); ASPARTATE AMINO TRANSFERASE 27 U/L (17-59); BILIRUBIN,TOTAL 0.8 mg/dL (0.2-1.3); BLOOD UREA NITROGEN 8 mg/dL (7-20); CALCIUM 9.2 mg/dL (8.4-10.2); CARBON DIOXIDE 25 mmol/L (22-30); CHLORIDE 104 mmol/L (98-107); GLUCOSE 115 mg/dL (75-110); POTASSIUM 4.6 mmol/L (3.6-5.0); TOTAL PROTEIN 6.9 g/dL (6.3-8.2)
[2020-03-16] MEDS: INSULIN LISPRO 100 UNIT/ML 3 ML VIAL SUBCUT SCH ×4 (08:18→21:12)
[2020-03-16] MEDS: METFORMIN HCL 500 MG TABLET PO SCH ×2 (08:18→15:28)
[2020-03-16] MEDS: DOCUSATE SODIUM 100 MG CAPSULE PO SCH ×3 (09:16→18:13)
[2020-03-16] MEDS: NICOTINE 21 MG/24 HR PATCH.TD24 TD SCH (09:16)
[2020-03-16] MEDS: SITAGLIPTIN PHOSPHATE 25 MG TABLET PO SCH (09:21)
[2020-03-16] MEDS: IBUPROFEN 800 MG TABLET PO SCH ×3 (09:21→17:32)
--- NOTE | 2020-03-16 09:23 | PDOC PROGRESS REPORT ---
Subjective Progress Note for:: 03/16/20 Subjective:: 03/11/2020 Patient seems to be doing a bit better today though he still oblivious to all of his medical problems. He is not oriented to anything but himself. I discussed all of his lab findings today and the fact that I believe he has diabetes, hyperlipidemia, hypertension. We talked again about his foot being infected and the need for amputation. I believe he has some significant underlying cognitive impairment very likely dementia. He does admit to having worsening memory loss over the last few years. I started him on a statin for his elevated cholestero l/LDL. His A1c is 10.3. Blood culture is pending and COVID is negative. He has no new complaints today. 03/12/2020 Patient seems to be doing well today. He seems rather oblivious to how sick he is and what exactly is wrong with his foot. He does remember parts of our conversation from yesterday in which I told him he needed surgery on his foot. General surgery has called the patient's daughter and spoke with them about the surgery and they are in agreement. I discussed with the patient that this surgery is needed to preserve the rest of his leg as well as his life given the infection will very likely continue to spread if we do not have surgical intervention. Patient is in full agreement with this plan and states he wants to have surgery. Otherwise, patient has no new complaints. 03/13/2020 Patient seems to be doing quite well today. He states his surgery went well but also appears a bit perplexed as to what surgery he actually had. I pointed at his newly amputated left stump and he seemed to remember some of what we have discussed every day that he has been here. He clearly has underlying dementia and his family will need to take this into account when they are planning his post hospital care. Patient has no new complaints today. 03/14/2020 Patient is seen to be doing well again today. He is continued on broad-spectrum antibiotics but will likely only need a short course of this now that we have good source control from his amputation. His blood sugar has been a bit labile depending on his diet here. I have started him on metformin and Januvia which seems to be quite effective. I recommended the patient consider insulin but he is very adamant that he has no intention of using insulin in the future and states that there will be no consistent use of needles if it is prescribed for him for any reason. Oral diabetes medications will likely be the only option for him. He will need disposition to SNF. Otherwise he has no new complaints. 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 Dr. Delgado saw the patient today. No acute events in last 24 hours. Afebrile. Patient is presently on cefepime and vancomycin. Cultures from 628 indicates Staphylococcus epidermidis. wBC count is improving. T-max is 97.8. 03/16/2020-no acute events in the last 24 hours. Afebrile. Waiting for placement. As per the nurse daughter wants to take him home once he is stable. 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 physical therapy is working with the patient. Reason For Visit: OSTEOMYELITIS OF LEFT FOOT, T2DM, HTN Physical Exam Vital Signs: Temp Pulse Resp BP Pulse Ox 97.7 F 72 16 136/61 H 100 03/16/20 07:26 03/16/20 07:26 03/16/20 07:26 03/16/20 07:26 03/16/20 07:26 Intake & Output 03/15/20 03/16/20 03/17/20 06:59 06:59 06:59 Intake Total 2150 1100 Output Total 955 2225 Balance 1195 -1125 Weight 72.4 kg 72.4 kg General appearance: PRESENT: no acute distress, well-developed Head exam: PRESENT: atraumatic Eye exam: PRESENT: conjunctiva pale, PERRLA Mouth exam: PRESENT: dry mucosa Teeth exam: PRESENT: poor dentation Neck exam: ABSENT: carotid bruit, JVD, lymphadenopathy, thyromegaly Respiratory exam: PRESENT: decreased breath sounds Cardiovascular exam: PRESENT: RRR. ABSENT: diastolic murmur, rubs, systolic murmur GI/Abdominal exam: PRESENT: normal bowel sounds, soft. ABSENT: distended, guarding, mass, organolmegaly, rebound, tenderness Rectal exam: PRESENT: deferred Extremities exam: PRESENT: other - lt has a left BKA. Neurological exam: PRESENT: alert, awake, oriented to person, oriented to place, oriented to time, oriented to situation, CN II-XII grossly intact. ABSENT: motor sensory deficit Psychiatric exam: PRESENT: appropriate affect, normal mood. ABSENT: homicidal ideation, suicidal ideation Results Laboratory Results: 03/16/20 06:21 03/16/20 06:21 03/16/20 03/16/20 06:21 06:21 WBC 12.9 H RBC 3.29 L Hgb 10.3 L Hct 30.6 L MCV 93 MCH 31.5 MCHC 33.8 RDW 14.9 H Plt Count 578 H Seg Neutrophils % 61.9 Sodium 136.3 L Potassium 4.6 Chloride 104 Carbon Dioxide 25 Anion Gap 7 BUN 8 Creatinine 0.60 Est GFR ( Amer) > 60 Glucose 115 H Calcium 9.2 Magnesium 1.7 Total Bilirubin 0.8 AST 27 Alkaline Phosphatase 71 Total Protein 6.9 Albumin 3.2 L 03/10/20 13:15 Troponin I 0.029 NT-Pro-B Natriuret Pep 938 H Impressions: Chest X-Ray 03/10/20 00:00 IMPRESSION: Bibasilar airspace opacities, may be secondary to atelectasis or pneumonia. Emphysema. Foot X-Ray 03/10/20 00:00 IMPRESSION: 1. Linear lucencies at the 1st, 2nd and 5th distal phalanges, may represent nondisplaced fractures versus artifact. Please correlate with point tenderness. 2. Diffuse soft tissue swelling at the left foot. Skin irregularity with small amount of gas at the tips of the 1st and 2nd toes, suggestive of soft tissue laceration/wound. Please correlate with clinical exam. 3. Thickened toenails with irregular edges. 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 Bilateral small vessel disease. 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 Qualifiers: Non-pressure ulcer stage: unspecified non-pressure ulcer stage Qualified Code(s): L97.529 - Non-pressure chronic ulcer of other part of left foot with unspecified severity Is this a current diagnosis for this admission?: Yes Plan: Highly suspect osteomyelitis Left foot x-ray showed gas Empiric vancomycin/cefepime, de-escalate antibiotics as results come back Blood cultures growing staph, sensitivities pending General surgery consulted: Performed BKA 03/12 Likely combination of PVD and diabetes causing ulceration Patient and family are in agreement with surgery Continued on broad-spectrum antibiotics, likely will need only short course given we have source control from amputation 03/15/2020-blood cultures positive for staph epidermidis. Patient is presently on IV cefepime and vancomycin. Status post left BKA on 03/12. Plan is to continue IV antibiotics for at least next 2 days. 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 Cultures came back positive for staph epidermidis patient is presently on IV cefepime and vancomycin. Plan is to continue antibiotic therapy until tomorrow. Afebrile. WBC count is 12,900. (2) COPD (chronic obstructive pulmonary disease) Qualifiers: COPD type: unspecified COPD Qualified Code(s): J44.9 - Chronic obstructive pulmonary disease, unspecified Is this a current diagnosis for this admission?: No Plan: Current smoker continues to smoke, is not interested in quitting As needed duo cristopher Stable breathing 03/16/2020-pulse ox is 100% on room air. Comfortable in the chair communicating well. (3) Cellulitis in diabetic foot Is this a current diagnosis for this admission?: Yes Plan: As above Needs long-term follow-up with podiatry (4) Diabetes mellitus, new onset Is this a current diagnosis for this admission?: Yes Plan: Hemoglobin A1c 10.3 No history of diabetes per patient Accu-Cheks, sliding scale insulin Will need to be on insulin at discharge per guidelines, can probably be transitioned to oral medications eventually Very responsive to insulin dosing Patient adamantly refuses to using any insulin after leaving the hospital. Started metformin and Januvia which patient is agreeable to taking and seems to be effective 03/15/2020-latest blood sugar is 143. Hemoglobin A1c is 10.3. Was started on metformin and Januvia. He is also on insulin sliding scale. Dietary consult will be requested. 03/16/2020-latest blood sugar is 114. Hemoglobin A1c is 10.3. Patient is presently on metformin and Januvia. Hemoglobin A1c is 10.3. Diet exercise weight loss lifestyle modifications discussed with the patient.
[2020-03-16 17:37] LABS: VANCOMYCIN,TROUGH 9.9 ug/mL (5.0-20.0)
[2020-03-16] MEDS: ATORVASTATIN CALCIUM 40 MG TABLET PO SCH (21:11)
[2020-03-17] MEDS: HEPARIN SOD (PORCINE) 5,000 UNIT/ML 1 ML VIAL SUBCUT SCH ×3 (05:08→22:03)
[2020-03-17] MEDS: CEFEPIME HCL 2 GM in DEXTROSE 5%-WATER 50 ML IV SCH ×3 (05:08→22:05)
[2020-03-17] MEDS: VANCOMYCIN HCL 1,000 MG in DEXTROSE 5%-WATER 250 ML IV SCH (06:09)
[2020-03-17 06:43] LABS: ABSOLUTE BASOPHILS # (AUTO) 0.1 10^3/uL (0.0-0.2); ABSOLUTE EOSINOPHILS # (AUTO) 0.5 10^3/uL (0.0-0.6); ABSOLUTE LYMPHOCYTES (AUTO) 1.8 10^3/uL (0.5-4.7); ABSOLUTE MONOCYTES (AUTO) 1.6 10^3/uL (0.1-1.4); ABSOLUTE NEUT (AUTO) 8.1 10^3/uL (1.7-8.2); BASOPHILS % (AUTO) 1.1 % (0-2); LYMPHOCYTES % (AUTO) 15.1 % (13-45); MEAN CORPUSCULAR HEMOGLOBIN 31.1 pg (27.0-33.4); MEAN CORPUSCULAR HGB CONC 33.4 g/dL (32.0-36.0); MEAN CORPUSCULAR VOLUME 93 fl (80-97); MONOCYTES % (AUTO) 13.4 % (3-13); PLATELET COUNT 577 10^3/uL (150-450); RED BLOOD COUNT 3.22 10^6/uL (4.35-5.55); RED CELL DISTRIBUTION WIDTH 14.6 % (11.5-14.0); SEGMENTED NEUTROPHILS % (AUTO) 66.4 % (42-78); TOTAL CELLS COUNTED % (AUTO) 100 %; WHITE BLOOD COUNT 12.2 10^3/uL (4.0-10.5)
[2020-03-17 07:05] LABS: ALBUMIN 3.3 g/dL (3.5-5.0); ALKALINE PHOSPHATASE 76 U/L (38-126); ANION GAP 5 (5-19); ASPARTATE AMINO TRANSFERASE 26 U/L (17-59); BILIRUBIN,DIRECT 0.1 mg/dL (0.0-0.4); BLOOD UREA NITROGEN 7 mg/dL (7-20); CALCIUM 9.3 mg/dL (8.4-10.2); CARBON DIOXIDE 28 mmol/L (22-30); CHLORIDE 103 mmol/L (98-107); GLUCOSE 96 mg/dL (75-110); POTASSIUM 4.7 mmol/L (3.6-5.0)
[2020-03-17] MEDS: METFORMIN HCL 500 MG TABLET PO SCH ×2 (08:56→16:23)
[2020-03-17] MEDS: INSULIN LISPRO 100 UNIT/ML 3 ML VIAL SUBCUT SCH ×3 (08:58→22:04)
[2020-03-17] MEDS: IBUPROFEN 800 MG TABLET PO SCH (08:59)
[2020-03-17] MEDS ORDERED: MORPHINE SULFATE 10 MG/ML INJ IV PRN (09:11)
--- NOTE | 2020-03-17 09:11 | PDOC PROGRESS REPORT ---
Subjective Progress Note for:: 03/17/20 Subjective:: 03/11/2020 Patient seems to be doing a bit better today though he still oblivious to all of his medical problems. He is not oriented to anything but himself. I discussed all of his lab findings today and the fact that I believe he has diabetes, hyperlipidemia, hypertension. We talked again about his foot being infected and the need for amputation. I believe he has some significant underlying cognitive impairment very likely dementia. He does admit to having worsening memory loss over the last few years. I started him on a statin for his elevated cholestero l/LDL. His A1c is 10.3. Blood culture is pending and COVID is negative. He has no new complaints today. 03/12/2020 Patient seems to be doing well today. He seems rather oblivious to how sick he is and what exactly is wrong with his foot. He does remember parts of our conversation from yesterday in which I told him he needed surgery on his foot. General surgery has called the patient's daughter and spoke with them about the surgery and they are in agreement. I discussed with the patient that this surgery is needed to preserve the rest of his leg as well as his life given the infection will very likely continue to spread if we do not have surgical intervention. Patient is in full agreement with this plan and states he wants to have surgery. Otherwise, patient has no new complaints. 03/13/2020 Patient seems to be doing quite well today. He states his surgery went well but also appears a bit perplexed as to what surgery he actually had. I pointed at his newly amputated left stump and he seemed to remember some of what we have discussed every day that he has been here. He clearly has underlying dementia and his family will need to take this into account when they are planning his post hospital care. Patient has no new complaints today. 03/14/2020 Patient is seen to be doing well again today. He is continued on broad-spectrum antibiotics but will likely only need a short course of this now that we have good source control from his amputation. His blood sugar has been a bit labile depending on his diet here. I have started him on metformin and Januvia which seems to be quite effective. I recommended the patient consider insulin but he is very adamant that he has no intention of using insulin in the future and states that there will be no consistent use of needles if it is prescribed for him for any reason. Oral diabetes medications will likely be the only option for him. He will need disposition to SNF. Otherwise he has no new complaints. 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 Dr. Delgado saw the patient today. No acute events in last 24 hours. Afebrile. Patient is presently on cefepime and vancomycin. Cultures from 628 indicates Staphylococcus epidermidis. wBC count is improving. T-max is 97.8. 03/16/2020-no acute events in the last 24 hours. Afebrile. Waiting for placement. As per the nurse daughter wants to take him home once he is stable. 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 physical therapy is working with the patient. 03/17/20-no acute events the last 24 hours. Afebrile. Waiting for placement. WBC count is 12,200. On IV cefepime and vancomycin. Vertebrae in the bed sleeping. woke Up on calling denies any problems. Reason For Visit: OSTEOMYELITIS OF LEFT FOOT, T2DM, HTN Physical Exam Vital Signs: Temp Pulse Resp BP Pulse Ox 98.2 F 69 18 131/77 H 99 03/17/20 07:47 03/17/20 07:47 03/17/20 07:47 03/17/20 07:47 03/17/20 07:47 Intake & Output 03/16/20 03/17/20 03/18/20 06:59 06:59 06:59 Intake Total 1100 4428 250 Output Total 2225 1625 Balance -1125 2803 250 Weight 72.4 kg 70.9 kg General appearance: PRESENT: no acute distress, well-developed Head exam: PRESENT: atraumatic Eye exam: PRESENT: conjunctiva pale, PERRLA Mouth exam: PRESENT: moist, tongue midline Teeth exam: PRESENT: poor dentation Neck exam: ABSENT: carotid bruit, JVD, lymphadenopathy, thyromegaly Respiratory exam: PRESENT: decreased breath sounds Cardiovascular exam: PRESENT: RRR. ABSENT: diastolic murmur, rubs, systolic murmur GI/Abdominal exam: PRESENT: normal bowel sounds, soft. ABSENT: distended, guarding, mass, organolmegaly, rebound, tenderness Rectal exam: PRESENT: deferred Extremities exam: PRESENT: full ROM. ABSENT: calf tenderness, clubbing, pedal edema Neurological exam: PRESENT: alert, awake, oriented to person, oriented to place, oriented to time, oriented to situation, CN II-XII grossly intact. ABSENT: motor sensory deficit Psychiatric exam: PRESENT: appropriate affect, normal mood. ABSENT: homicidal ideation, suicidal ideation Results Laboratory Results: 03/17/20 06:07 03/17/20 06:07 03/17/20 03/17/20 06:07 06:07 WBC 12.2 H RBC 3.22 L Hgb 10.0 L Hct 30.0 L MCV 93 MCH 31.1 MCHC 33.4 RDW 14.6 H Plt Count 577 H Seg Neutrophils % 66.4 Sodium 136.4 L Potassium 4.7 Chloride 103 Carbon Dioxide 28 Anion Gap 5 BUN 7 Creatinine 0.64 Est GFR ( Amer) > 60 Glucose 96 Calcium 9.3 Magnesium 1.7 Total Bilirubin 1.0 AST 26 Alkaline Phosphatase 76 Total Protein 7.0 Albumin 3.3 L 03/10/20 13:15 Troponin I 0.029 NT-Pro-B Natriuret Pep 938 H Impressions: Chest X-Ray 03/10/20 00:00 IMPRESSION: Bibasilar airspace opacities, may be secondary to atelectasis or pneumonia. Emphysema. Foot X-Ray 03/10/20 00:00 IMPRESSION: 1. Linear lucencies at the 1st, 2nd and 5th distal phalanges, may represent nondisplaced fractures versus artifact. Please correlate with point tenderness. 2. Diffuse soft tissue swelling at the left foot. Skin irregularity with small amount of gas at the tips of the 1st and 2nd toes, suggestive of soft tissue laceration/wound. Please correlate with clinical exam. 3. Thickened toenails with irregular edges. 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 Bilateral small vessel disease. 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 Qualifiers: Non-pressure ulcer stage: unspecified non-pressure ulcer stage Qualified Code(s): L97.529 - Non-pressure chronic ulcer of other part of left foot with unspecified severity Is this a current diagnosis for this admission?: Yes Plan: Highly suspect osteomyelitis Left foot x-ray showed gas Empiric vancomycin/cefepime, de-escalate antibiotics as results come back Blood cultures growing staph, sensitivities pending General surgery consulted: Performed BKA 03/12 Likely combination of PVD and diabetes causing ulceration Patient and family are in agreement with surgery Continued on broad-spectrum antibiotics, likely will need only short course given we have source control from amputation 03/15/2020-blood cultures positive for staph epidermidis. Patient is presently on IV cefepime and vancomycin. Status post left BKA on 03/12. Plan is to continue IV antibiotics for at least next 2 days. 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 Cultures came back positive for staph epidermidis patient is presently on IV cefepime and vancomycin. Plan is to continue antibiotic therapy until tomorrow. Afebrile. WBC count is 12,900. 03/17/20-patient admitted with ischemic ulcer of the toe in the left foot. Status post left BKA. Physical therapy working with the patient. Patient is waiting for placement. On cefepime and vancomycin. Blood cultures 628 indicates staph epidermidis. (2) COPD (chronic obstructive pulmonary disease) Qualifiers: COPD type: unspecified COPD Qualified Code(s): J44.9 - Chronic obstructive pulmonary disease, unspecified Is this a current diagnosis for this admission?: No Plan: Current smoker continues to smoke, is not interested in quitting As needed jono nicholas Stable breathing 03/16/2020-pulse ox is 100% on room air. Comfortable in the chair communicating well. (3) Cellulitis in diabetic foot Is this a current diagnosis for this admission?: Yes Plan: As above Needs long-term follow-up with podiatry (4) Diabetes mellitus, new onset Is this a current diagnosis for this admission?: Yes Plan: Hemoglobin A1c 10.3 No history of diabetes per patient Accu-Cheks, sliding scale insulin Will need to be on insulin at discharge per guidelines, can probably be transitioned to oral medications eventually Very responsive to insulin dosing Patient adamantly refuses to using any insulin after leaving the hospital. Started metformin and Januvia which patient is agreeable to taking and seems to be effective 03/15/2020-latest blood sugar is 143. Hemoglobin A1c is 10.3. Was started on metformin and Januvia. He is also on insulin sliding scale. Dietary consult will be requested. 03/16/2020-latest blood sugar is 114. Hemoglobin A1c is 10.3. Patient is presently on metformin and Januvia. Hemoglobin A1c is 10.3. Diet exercise weight loss lifestyle modifications discussed with the patient. 03/17/2020-latest blood sugar is 90. Presently on metformin and Januvia. To decrease the insulin sliding scale to twice a day.
[2020-03-17] MEDS: DOCUSATE SODIUM 100 MG CAPSULE PO SCH ×3 (09:22→17:35)
[2020-03-17] MEDS: NICOTINE 21 MG/24 HR PATCH.TD24 TD SCH (09:24)
[2020-03-17] MEDS: SITAGLIPTIN PHOSPHATE 25 MG TABLET PO SCH (10:15)
[2020-03-17] MEDS: VANCOMYCIN HCL 1,250 MG in DEXTROSE 5%-WATER 250 ML IV SCH ×2 (12:09→23:08)
[2020-03-17] MEDS: ATORVASTATIN CALCIUM 40 MG TABLET PO SCH (22:06)
[2020-03-18] MEDS: HEPARIN SOD (PORCINE) 5,000 UNIT/ML 1 ML VIAL SUBCUT SCH ×3 (05:33→14:02)
[2020-03-18] MEDS: CEFEPIME HCL 2 GM in DEXTROSE 5%-WATER 50 ML IV SCH (05:34)
[2020-03-18 05:36] LABS: ABSOLUTE BASOPHILS # (AUTO) 0.1 10^3/uL (0.0-0.2); ABSOLUTE EOSINOPHILS # (AUTO) 0.7 10^3/uL (0.0-0.6); ABSOLUTE LYMPHOCYTES (AUTO) 2.2 10^3/uL (0.5-4.7); ABSOLUTE MONOCYTES (AUTO) 1.7 10^3/uL (0.1-1.4); ABSOLUTE NEUT (AUTO) 7.8 10^3/uL (1.7-8.2); BASOPHILS % (AUTO) 0.9 % (0-2); EOSINOPHILS % (AUTO) 5.3 % (0-6); HEMATOCRIT 30.5 % (37.9-51.0); HEMOGLOBIN 10.1 g/dL (13.5-17.0); LYMPHOCYTES % (AUTO) 17.6 % (13-45); MEAN CORPUSCULAR HEMOGLOBIN 30.9 pg (27.0-33.4); MEAN CORPUSCULAR HGB CONC 33.2 g/dL (32.0-36.0); MEAN CORPUSCULAR VOLUME 93 fl (80-97); MONOCYTES % (AUTO) 13.8 % (3-13); PLATELET COUNT 557 10^3/uL (150-450); RED BLOOD COUNT 3.28 10^6/uL (4.35-5.55); RED CELL DISTRIBUTION WIDTH 14.5 % (11.5-14.0); SEGMENTED NEUTROPHILS % (AUTO) 62.4 % (42-78); TOTAL CELLS COUNTED % (AUTO) 100 %; WHITE BLOOD COUNT 12.5 10^3/uL (4.0-10.5)
[2020-03-18 05:59] LABS: ALBUMIN 3.2 g/dL (3.5-5.0); ALKALINE PHOSPHATASE 80 U/L (38-126); ANION GAP 8 (5-19); ASPARTATE AMINO TRANSFERASE 28 U/L (17-59); BILIRUBIN,TOTAL 0.9 mg/dL (0.2-1.3); BLOOD UREA NITROGEN 7 mg/dL (7-20); CALCIUM 9.4 mg/dL (8.4-10.2); CARBON DIOXIDE 29 mmol/L (22-30); CHLORIDE 103 mmol/L (98-107); GLUCOSE 85 mg/dL (75-110); POTASSIUM 5.1 mmol/L (3.6-5.0)
[2020-03-18] MEDS: METFORMIN HCL 500 MG TABLET PO SCH (09:32)
[2020-03-18] MEDS: DOCUSATE SODIUM 100 MG CAPSULE PO SCH ×2 (09:34→10:06)
[2020-03-18] MEDS: INSULIN LISPRO 100 UNIT/ML 3 ML VIAL SUBCUT SCH (09:34)
[2020-03-18] MEDS: NICOTINE 21 MG/24 HR PATCH.TD24 TD SCH (10:06)
[2020-03-18] MEDS: SITAGLIPTIN PHOSPHATE 25 MG TABLET PO SCH (10:06)
--- NOTE | 2020-03-18 12:43 | PDOC TRANSFER SUMMARY ---
Impression - Admit/DC Date/PCP Admission Date/Primary Care Provider: 03/10/20 17:27 Discharge Date: 03/18/20 - Discharge Diagnosis (1) Gangrene of left foot Is this a current diagnosis for this admission?: Yes (2) Ischemic ulcer of toe of left foot Is this a current diagnosis for this admission?: Yes (3) Cellulitis in diabetic foot Is this a current diagnosis for this admission?: Yes (4) COPD (chronic obstructive pulmonary disease) Is this a current diagnosis for this admission?: Yes (5) Dementia Is this a current diagnosis for this admission?: Yes (6) Diabetes mellitus, new onset Is this a current diagnosis for this admission?: Yes (7) Hyperlipidemia Is this a current diagnosis for this admission?: Yes (8) Peripheral vascular disease Is this a current diagnosis for this admission?: Yes (9) Sepsis Is this a current diagnosis for this admission?: Yes (10) Smoker Is this a current diagnosis for this admission?: Yes - Additional Information Resuscitation Status: Full Code Discharge Diet: Cardiac, Diabetic Discharge Activity: Supervised Activity Referrals: [facility] [Provider Group] Home Medications: Atorvastatin Calcium [Lipitor 40 mg Tablet] 40 mg PO QHS tablet 03/18/20 Insulin Lispro [Humalog Insulin (Lispro) 100 unit/mL] 0 - 12 unit SUBCUT Q12 unit 03/18/20 Metformin HCl [Glucophage 500 mg Tablet] 500 mg PO BIDACBS tablet 03/18/20 Nicotine [Nicoderm 21 mg/24 Hr Transderm Patch] 1 each TD DAILY patch.td24 03/18/20 Sitagliptin Phosphate [Januvia 25 mg Tablet] 25 mg PO DAILY tablet 03/18/20 History of Present Illiness History of Present Illness: PREMA FAULKNER is a 84 year old male with no reported past medical history who presents to the ED via EMS due to his daughter calling them to bring her father to the hospital due to obviously severely infected left foot. Patient is an extremely poor historian and is quite adamant that he has no medical problems and he does not need to see a doctor. He states he does not remember why they brought him to the emergency room. Surgeon attempted to discuss the case with the family however he reports to me that they were rather belligerent with each other with yelling and general disorder on the phone which made communication with them near impossible. On admission, patient is noted to have a leukocytosis. The great toe on his left foot is clearly necrotic and he has very poor pulses bilateral dorsalis pedis. General surgery has ordered arterial studies of the lower extremities. They have also recommended BKA as a therapeutic option to treat what is very likely progressive osteomyelitis of the left foot. Likely precipitated by untreated diabetes given the patient's blood sugars in the 300s on admission. He denies any history of diabetes. He is a current smoker and states he plans to continue to smoke. He does not want a nicotine patch. He is started on empiric cefepime and vancomycin and blood cultures have been sent and are pending. He will be admitted to inpatient [facility]. Hospital Course Hospital Course: He was kept on vancomycin and cefepime. He was seen in consultation by general surgery. He wound up having a left BKA. He was able to be transitioned to oral hypoglycemics. He has not required very much sliding scale coverage in the past couple of days. His blood cultures turned positive with Staphylococcus epidermidis, and infectious disease consultation was obtained. It was felt that this was most likely contaminant and it was recommended that antibiotics be discontinued at discharge since source control was achieved via surgery. He has not been febrile. He was seen and evaluated by physical therapy who recommended alf facility placement at discharge. Bed was obtained and he is being transferred today in stable condition. He has follow-up arranged with general surgery in 7 to 10 days. Physical Exam Vital Signs: Temp Pulse Resp BP Pulse Ox 98.9 F 73 16 136/61 H 97 03/18/20 07:58 03/18/20 07:58 03/18/20 07:58 03/18/20 07:58 03/18/20 07:58 Intake & Output 03/17/20 03/18/20 03/19/20 06:59 06:59 06:59 Intake Total 4428 1660 50 Output Total 1625 725 Balance 2803 935 50 Weight 70.9 kg 69.6 kg 69.6 kg General appearance: PRESENT: no acute distress, cooperative, disheveled Respiratory exam: PRESENT: clear to auscultation brenda, symmetrical, unlabored. ABSENT: accessory muscle use, chest wall tenderness, crackles, prolonged expiratory phas, rhonchi, tachypnea, wheezes Cardiovascular exam: PRESENT: RRR, +S1, +S2 Pulses: PRESENT: normal carotid pulses Vascular exam: PRESENT: normal capillary refill GI/Abdominal exam: PRESENT: normal bowel sounds, soft. ABSENT: distended, guarding, rebound, tenderness Extremities exam: ABSENT: clubbing, pedal edema Musculoskeletal exam: PRESENT: deformity - Left BKA in a knee immobilizer Neurological exam: PRESENT: alert, awake, oriented to person, oriented to place, other - Orientation to situation is questionable because he seems to have pretty poor insight into his overall medical condition Psychiatric exam: PRESENT: other - He eyed me suspiciously the whole time I was speaking to him Skin exam: PRESENT: dry, warm Results Laboratory Results: WBC 12.5 10^3/uL (4.0-10.5) H 03/18/20 05:10 RBC 3.28 10^6/uL (4.35-5.55) L 03/18/20 05:10 Hgb 10.1 g/dL (13.5-17.0) L 03/18/20 05:10 Hct 30.5 % (37.9-51.0) L 03/18/20 05:10 MCV 93 fl (80-97) 03/18/20 05:10 MCH 30.9 pg (27.0-33.4) 03/18/20 05:10 MCHC 33.2 g/dL (32.0-36.0) 03/18/20 05:10 RDW 14.5 % (11.5-14.0) H 03/18/20 05:10 Plt Count 557 10^3/uL (150-450) H 03/18/20 05:10 Lymph % (Auto) 17.6 % (13-45) 03/18/20 05:10 [place] % (Auto) 13.8 % (3-13) H 03/18/20 05:10 Eos % (Auto) 5.3 % (0-6) 03/18/20 05:10 Baso % (Auto) 0.9 % (0-2) 03/18/20 05:10 Absolute Neuts (auto) 7.8 10^3/uL (1.7-8.2) 03/18/20 05:10 Absolute Lymphs (auto) 2.2 10^3/uL (0.5-4.7) 03/18/20 05:10 Absolute Monos (auto) 1.7 10^3/uL (0.1-1.4) H 03/18/20 05:10 Absolute Eos (auto) 0.7 10^3/uL (0.0-0.6) H 03/18/20 05:10 Absolute Basos (auto) 0.1 10^3/uL (0.0-0.2) 03/18/20 05:10 Seg Neutrophils % 62.4 % (42-78) 03/18/20 05:10 PT 13.1 SEC (11.4-15.4) 03/10/20 13:15 INR 0.99 03/10/20 13:15 VBG pH 7.38 (7.30-7.42) 03/10/20 16:10 VBG pCO2 48.6 mmHg (35-63) 03/10/20 16:10 VBG HCO3 28.0 mmol/L (20-32) 03/10/20 16:10 VBG Base Excess 2.1 mmol/L 03/10/20 16:10 Sodium 139.6 mmol/L (137-145) 03/18/20 05:10 Potassium 5.1 mmol/L (3.6-5.0) H 03/18/20 05:10 Chloride 103 mmol/L (98-107) 03/18/20 05:10 Carbon Dioxide 29 mmol/L (22-30) 03/18/20 05:10 Anion Gap 8 (5-19) 03/18/20 05:10 BUN 7 mg/dL (7-20) 03/18/20 05:10 Creatinine 0.74 mg/dL (0.52-1.25) 03/18/20 05:10 Est GFR ( Amer) > 60 (>60) 03/18/20 05:10 Est GFR (MDRD) Non-Af > 60 (>60) 03/18/20 05:10 Glucose 85 mg/dL (75-110) 03/18/20 05:10 POC Glucose 101 mg/dL (70-110) 03/17/20 21:31 Hemoglobin A1c % 10.3 % (4.7-6.0) H 03/11/20 04:23 Lactic Acid 2.4 mmol/L (0.7-2.1) H 03/10/20 16:10 Calcium 9.4 mg/dL (8.4-10.2) 03/18/20 05:10 Magnesium 1.8 mg/dL (1.6-2.3) 03/18/20 05:10 Total Bilirubin 0.9 mg/dL (0.2-1.3) 03/18/20 05:10 Direct Bilirubin 0.0 mg/dL (0.0-0.4) 03/18/20 05:10 Neonat Total Bilirubin Not Reportable 03/18/20 05:10 Neonat Direct Bilirubin Not Reportable 03/18/20 05:10 Neonat Indirect Bili Not Reportable 03/18/20 05:10 AST 28 U/L (17-59) 03/18/20 05:10 ALT 13 U/L (<50) 03/18/20 05:10 Alkaline Phosphatase 80 U/L (38-126) 03/18/20 05:10 Troponin I 0.029 ng/mL 03/10/20 13:15 NT-Pro-B Natriuret Pep 938 pg/mL (<450) H 03/10/20 13:15 Total Protein 7.0 g/dL (6.3-8.2) 03/18/20 05:10 Albumin 3.2 g/dL (3.5-5.0) L 03/18/20 05:10 Triglycerides 165 mg/dL (<150) H 03/11/20 04:23 Cholesterol 205.38 mg/dL (0-200) H 03/11/20 04:23 LDL Cholesterol Direct 141 mg/dL (<100) H 03/11/20 04:23 VLDL Cholesterol 33.0 mg/dL (10-31) H 03/11/20 04:23 HDL Cholesterol 35 mg/dL (>40) L 03/11/20 04:23 TSH 2.35 uIU/mL (0.47-4.68) 03/11/20 04:23 Free T4 1.01 ng/dL (0.78-2.19) 03/11/20 04:23 Urine Color YELLOW 03/10/20 17:56 Urine Appearance CLEAR 03/10/20 17:56 Urine pH 7.0 (5.0-9.0) 03/10/20 17:56 Ur Specific [place] 1.016 03/10/20 17:56 Urine Protein 30 mg/dL (NEGATIVE) H 03/10/20 17:56 Urine Glucose (UA) >=500 mg/dL (NEGATIVE) H 03/10/20 17:56 Urine Ketones NEGATIVE mg/dL (NEGATIVE) 03/10/20 17:56 Urine Blood NEGATIVE (NEGATIVE) 03/10/20 17:56 Urine Nitrite NEGATIVE (NEGATIVE) 03/10/20 17:56 Urine Bilirubin NEGATIVE (NEGATIVE) 03/10/20 17:56 Urine Urobilinogen 4.0 mg/dL (<2.0) H 03/10/20 17:56 Ur Leukocyte Esterase NEGATIVE (NEGATIVE) 03/10/20 17:56 Urine WBC (Auto) 0 /HPF 03/10/20 17:56 Urine RBC (Auto) 2 /HPF 03/10/20 17:56 Urine Ascorbic Acid NEGATIVE (NEGATIVE) 03/10/20 17:56 Time Trough Drawn 1650 03/16/20 16:50 Vancomycin Trough 9.9 ug/mL (5.0-20.0) 03/16/20 16:50 Hep Bs Antigen Cancelled 03/12/20 04:26 Hep Bs Ag Confirmation Cancelled 03/12/20 04:26 Hep C RIBA Interpret Cancelled 03/12/20 04:26 Hepatitis C (RAFA) Cancelled 03/12/20 04:26 Hep C Verif Com 1 Cancelled 03/12/20 04:26 Hep C Verif Com 2 Cancelled 03/12/20 04:26 Hepatitis Comment Cancelled 03/12/20 04:26 HIV 1&2 Antibody Cancelled 03/12/20 04:26 SARS-CoV-2 (PCR) NEGATIVE (NEGATIVE) 03/10/20 17:08 03/10/20 13:15 Troponin I 0.029 NT-Pro-B Natriuret Pep 938 H Impressions: Chest X-Ray 03/10/20 00:00 IMPRESSION: Bibasilar airspace opacities, may be secondary to atelectasis or pneumonia. Emphysema. Foot X-Ray 03/10/20 00:00 IMPRESSION: 1. Linear lucencies at the 1st, 2nd and 5th distal phalanges, may represent nondisplaced fractures versus artifact. Please correlate with point tenderness. 2. Diffuse soft tissue swelling at the left foot. Skin irregularity with small amount of gas at the tips of the 1st and 2nd toes, suggestive of soft tissue la ceration/wound. Please correlate with clinical exam. 3. Thickened toenails with irregular edges. 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 Bilateral small vessel disease. Plan Time Spent: Greater than 30 Minutes Stroke Is this a Stroke Patient?: No Acute Heart Failure - Is this a Heart Failure Patient?: No
[2020-03-18] MEDS: VANCOMYCIN HCL 1,250 MG in DEXTROSE 5%-WATER 250 ML IV SCH (13:34)
[2020-03-18 15:38] VITALS: BP 133/72
== END 2020-03-18 15:39 | DRG 854 ==
LOC: ER 12:47 → EH 17:27 → 4N 20:44
PROVIDERS: ADMIT Internal Medicine; ATTEND Family Medicine
PROC: 0Y6J0Z3 Detachment at Left Lower Leg, Low, Open Approach (ICD-10-PCS; principal; 2020-03-12 15:00)
DX: A41.9 Sepsis, unspecified organism (principal); E11.52 Type 2 diabetes mellitus with diabetic peripheral angiopathy with gangrene; I96 Gangrene, not elsewhere classified; L03.116 Cellulitis of left lower limb; L97.529 Non-pressure chronic ulcer of other part of left foot with unspecified severity; E11.621 Type 2 diabetes mellitus with foot ulcer; E11.69 Type 2 diabetes mellitus with other specified complication; F03.90 Unspecified dementia, unspecified severity, without behavioral disturbance, psychotic disturbance, mood disturbance, and anxiety; J44.9 Chronic obstructive pulmonary disease, unspecified; E78.5 Hyperlipidemia, unspecified; F17.200 Nicotine dependence, unspecified, uncomplicated; M19.90 Unspecified osteoarthritis, unspecified site; H91.90 Unspecified hearing loss, unspecified ear; I10 Essential (primary) hypertension; I44.4 Left anterior fascicular block; Z20.828 Contact with and (suspected) exposure to other viral communicable diseases; Z79.4 Long term (current) use of insulin; Z79.899 Other long term (current) drug therapy
CPT/HCPCS: 01482; 36415; 71045; 80048; 80053; 80061; 80202; 81001; 82803; 82962; 83036; 83605; 83735; 83880; 84439; 84443; 84484; 85025; 85610; 87040; 87077; 87150; 87186; 87635; 88307; 88311; 93005; 93010; 93306; 93925; 96365; 99140; 99285; C9803; J0692; J1100; J1644; J1815; J2250; J2270; J2405; J2704; J3010; J3370; J7060; J7120; L1830